=== PATIENT | male | born 1955 | race Caucasian/White ===

== ENCOUNTER 2018-09-24 08:02 | Inpatient (IN) | payer BC ==
[2018-09-24 08:02] VITALS: BMI 31.4
[2018-09-24 08:52] LABS: BASO # 0.1 K/uL (0.0-0.2); BASO % 0.8 % (0.0-2.0); EOS # 1.5 K/uL (0.0-0.7); EOS % 18.6 % (0.0-4.0); HEMOGLOBIN 7.6 g/dL (12.0-18.0); MEAN CELL VOLUME 80.3 fL (80.0-94.0); MEAN CORPUSCULAR HEMOGLOBIN 25.9 pg (27.0-31.0); MEAN CORPUSCULAR HGB CONC 32.3 g/dL (33.0-37.0); MEAN PLATELET VOLUME 8.5 fL (7.2-11.7); MONO # 0.7 K/uL (0.0-0.8); MONO % 8.9 % (0.0-10.0); NEUT # 4.8 K/uL (1.8-7.0); NEUT % 59.7 % (50.0-75.0); RBC 2.94 Mil/uL (4.40-5.90); RED CELL DISTRIBUTION WIDTH 15.2 % (11.5-14.5)
[2018-09-24 09:00] LABS: INR 1.1; PROTHROMBIN TIME 12.2 SECONDS (9.7-12.2)
--- NOTE | 2018-09-24 09:02 | C.PDOC ---
History Of Present Illness 62 year old male with a history of renal insufficiency, not on dialysis, presents to the emergency department with increased shortness of breath. Patient was sent in by Dr. Avelino Carter for admission for dialysis. Patient denies chest p ain. Time Seen by Provider: 09/24/18 08:07 Chief Complaint (Nursing): Medical Clearance History Per: Patient History/Exam Limitations: no limitations Onset/Duration Of Symptoms: Days Current Symptoms Are (Timing): Still Present Past Medical History Reviewed: Historical Data, Nursing Documentation, Vital Signs Vital Signs: Last Vital Signs Temp 98.3 F 09/24/18 08:04 Pulse 65 09/24/18 08:04 Resp 18 09/24/18 08:04 BP 160/68 H 09/24/18 08:04 Pulse Ox 100 09/24/18 08:04 - Medical History PMH: CHF, Diabetes, HTN, Hypercholesterolemia, Peripheral Edema Denies: Chronic Kidney Disease Surgical History: CABG (double), Pacemaker - [facility] Procedures INSERT PACE. DUAL DINESH IN CHEST SUBCU/FASCIA, OPEN (07/12/16) INSERTION OF PACEMAKER LEAD INTO R VENTRICLE, PERC APPROACH (07/12/16) INSERTION OF PACEMAKER LEAD INTO RIGHT ATRIUM, PERC APPROACH (07/12/16) Family History: States: No Known Family Hx - Social History Hx Alcohol Use: No Hx Substance Use: No - Immunization History Hx Tetanus Toxoid Vaccination: No Hx Influenza Vaccination: No Hx Pneumococcal Vaccination: No Review Of Systems Except As Marked, All Systems Reviewed And Found Negative. Respiratory: Positive for: Shortness of Breath Physical Exam - Physical Exam Appears: Non-toxic, No Acute Distress Skin: Normal Color, Warm, Dry Head: Atraumatic, Normacephalic Eye(s): bilateral: Normal Inspection, PERRL, EOMI Nose: Normal Oral Mucosa: Moist Neck: Normal, Supple Chest: Symmetrical Cardiovascular: Rhythm Regular, No Murmur Respiratory: Rales (bilaterally) Gastrointestinal/Abdominal: Soft, No Tenderness Extremity: Pedal Edema (+3 pitting edema bilaterally) Extremity: Bilateral: Atraumatic, Normal ROM Neurological/Psych: Oriented x3, Normal Speech, Normal Cognition ED Course And Treatment - Laboratory Results Result Diagrams: 09/24/18 08:39 09/24/18 08:39 ECG Rhythm: V Paced Rate From EC O2 Sat by Pulse Oximetry: 100 (RA) Pulse Ox Interpretation: Normal Medical Decision Making Medical Decision Making: Plan: 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 Jaramillo for consult. Disposition Discussed With : Mary Carter Doctor Will See Patient In The: Hospital Counseled Patient/Family Regarding: Studies Performed, Diagnosis - Disposition Disposition Time: 09:02 Condition: FAIR Forms: [facility] ([employer]) - Clinical Impression Clinical Impression: CHF (congestive heart failure) - Scribe Statement The provider has reviewed the documentation as recorded by the Scribe (Watson Neilvi) Provider Attestation: All medical record entries made by the Scribe were at my direction and personally dictated by me. I have reviewed the chart and agree that the record accurately reflects my personal performance of the history, physical exam, medical decision making, and the department course for this patient. I have also personally directed, reviewed, and agree with the discharge instructions and disposition.
[2018-09-24 09:04] LABS: ALB/GLOB RATIO 1.4 (1.0-2.1); ALBUMIN 3.6 g/dL (3.5-5.0); CALCIUM 6.7 mg/dl (8.6-10.4)
[2018-09-24 09:07] LABS: TROPONIN I 0.018 ng/mL (0.00-0.120)
--- NOTE | 2018-09-24 10:57 | RAD ---
HISTORY: SOB COMPARISON: Chest x-ray performed 07/13/16 TECHNIQUE: Chest, one view. FINDINGS: Examination limited by habitus. LUNGS: Bilateral hilar prominence. Mild pulmonary venous congestion. Nodular calcifications within the left and right upper lobes similar prior study likely related to calcified granulomas. Multiple left hilar calcifications likely nodes. Patchy left lower lobe excessive/infiltrate. Please note that chest x-ray has limited sensitivity for the detection of pulmonary masses. PLEURA: No significant pleural effusion identified. No definite pneumothorax . CARDIOVASCULAR: Left-sided pacemaker. Median sternotomy wires with evidence of CABG. Marked cardiomegaly. OSSEOUS STRUCTURES: Degenerative changes. VISUALIZED UPPER ABDOMEN: Unremarkable. OTHER FINDINGS: None. IMPRESSION: Nodular calcifications within the left and right upper lobes similar prior study likely related to calcified granulomas. Multiple left hilar calcifications likely nodes. Left-sided pacemaker. Cardiomegaly. Bilateral hilar prominence. Mild pulmonary venous congestion. Patchy left lower lobe atelectasis/infiltrate.
--- NOTE | 2018-09-24 11:53 | CP.PCM.CON ---
History of Present Illness - History of Present Illness History of Present Illness: Surgery Consult Note. Dr. Jaramillo Service 62yo M with PMHx of Renal Insufficiency, not currently on HD, was sent in to the hospital by the PMD for high creatinine and shortness of breath. Patient states that he had a similar episode 1 month ago where he obtained medical management with Lasix and was asked to follow up closely for any improvement. Patient returned today with worsening SOB. Denies any other complaints. No F/C. No chest pain. no Abdominal pain. No N/V/D. PMD: Dr. Avelino Carter PMHx: Renal Insufficiency, CHF, DM, HTN, HLD PSHx: Pacemaker, CABG Family Hx: Non-contributory Social Hx: Denies Tobacco use, Denies illicit drugs, denies etoh NKDA Review of Systems - Review of Systems All systems: reviewed and no additional remarkable complaints except - Constitutional Constitutional: absent: Chills, Fever - EENT Eyes: absent: Blurred Vision Nose/Mouth/Throat: absent: Epistaxis, Nasal Discharge - Cardiovascular Cardiovascular: Dyspnea, Dyspnea on Exertion, Pedal Edema. absent: Chest Pain at Rest - Respiratory Respiratory: Dyspnea. absent: Cough - Gastrointestinal Gastrointestinal: absent: Abdominal Pain, Belching, Diarrhea, Nausea, Vomiting - Integumentary Integumentary: absent: Striae - Neurological Neurological: absent: Paresthesias Past Patient History - Infectious Disease Hx of Infectious Diseases: None - Past Medical History & Family History Past Medical History?: Yes Past Family History: Reviewed and not pertinent - Past Social History Smoking Status: Never Smoked Alcohol: None Drugs: Denies - CARDIAC Hx Congestive Heart Failure: Yes Hx Hypercholesterolemia: Yes Hx Hypertension: Yes Hx Pacemaker: Yes Hx Peripheral Edema: Yes - PULMONARY Hx Respiratory Disorders: No - NEUROLOGICAL Hx Neurological Disorder: No - HEENT Hx HEENT Problems: No Other/Comment: WEARS EYEGLASSES - RENAL Hx Chronic Kidney Disease: Yes - ENDOCRINE/METABOLIC Hx Diabetes Mellitus Type 2: Yes Other/Comment: hyper or hypo unknown - HEMATOLOGICAL/ONCOLOGICAL Hx Blood Disorders: No - INTEGUMENTARY Hx Dermatological Problems: No - MUSCULOSKELETAL/RHEUMATOLOGICAL Hx Musculoskeletal Disorders: No Hx Falls: No - GASTROINTESTINAL Hx Gastrointestinal Disorders: No - GENITOURINARY/GYNECOLOGICAL Hx Genitourinary Disorders: No - PSYCHIATRIC Hx Substance Use: No - SURGICAL HISTORY Hx Coronary Artery Bypass Graft: Yes (double) - ANESTHESIA Hx Anesthesia: Yes Hx Anesthesia Reactions: No Meds Allergies/Adverse Reactions: Allergies Allergy/AdvReac Type Severity Reaction Status Date / Time No Known Allergies Allergy Verified 07/12/16 11:44 Physical Exam - Constitutional Appears: Well, Non-toxic, No Acute Distress - Head Exam Head Exam: ATRAUMATIC, NORMAL INSPECTION, NORMOCEPHALIC - Eye Exam Eye Exam: EOMI. absent: Scleral icterus - ENT Exam ENT Exam: Mucous Membranes Moist - Respiratory Exam Respiratory Exam: NORMAL BREATHING PATTERN. absent: Accessory Muscle Use, Respiratory Distress - Cardiovascular Exam Cardiovascular Exam: RRR. absent: JVD - GI/Abdominal Exam GI & Abdominal Exam: Soft. absent: Distended, Firm, Guarding, Hernia, Rebound, Rigid, Tenderness - Extremities Exam Extremities exam: Positive for: pedal edema. Negative for: calf tenderness - Neurological Exam Neurological exam: Alert, Oriented x3 - Psychiatric Exam Psychiatric exam: Normal Affect, Normal Mood - Skin Skin Exam: Dry, Intact, Normal Color, Warm Results - Vital Signs Recent Vital Signs: Last Vital Signs Temp 97.7 F 09/24/18 09:01 Pulse 76 09/24/18 09:13 Resp 18 09/24/18 09:13 BP 145/76 09/24/18 09:13 Pulse Ox 95 09/24/18 10:19 - Labs Result Diagrams: 09/24/18 08:39 09/24/18 08:39 Labs: Laboratory Results - last 24 hr 09/24/18 09/24/18 09/24/18 08:39 08:39 08:39 WBC 8.0 RBC 2.94 L Hgb 7.6 L D Hct 23.6 L MCV 80.3 D MCH 25.9 L MCHC 32.3 L RDW 15.2 H Plt Count 219 MPV 8.5 Neut % (Auto) 59.7 Lymph % (Auto) 12.0 L Kent % (Auto) 8.9 Eos % (Auto) 18.6 H Baso % (Auto) 0.8 Neut # (Auto) 4.8 Lymph # (Auto) 1.0 Kent # (Auto) 0.7 Eos # (Auto) 1.5 H Baso # (Auto) 0.1 PT 12.2 INR 1.1 APTT 32 Sodium 139 Potassium 5.2 Chloride 102 Carbon Dioxide 23 Anion Gap 19 BUN 91 H Creatinine 8.1 H* Est GFR ( Amer) 8 Est GFR (Non-Af Amer) 7 Random Glucose 89 Calcium 6.7 L Magnesium 2.0 Total Bilirubin 0.5 AST 41 ALT 52 Alkaline Phosphatase 119 Troponin I 0.0180 NT-Pro-B Natriuret Pep 11980 H Total Protein 6.2 L Albumin 3.6 Globulin 2.6 Albumin/Globulin Ratio 1.4 Assessment & Plan - Assessment and Plan (Free Text) Assessment: 62yo M with renal insufficiency Plan: - Plan for OR on 09/25 - NPO at ma - Medical optimization - Right arm precautions - f/u US Vein mapping as ordered Further recs as per Dr. Ella Cabrales PGY2 Surgery
--- NOTE | 2018-09-24 21:08 | CP.PCM.HP ---
Past Patient History - Infectious Disease Hx of Infectious Diseases: None - Past Medical History & Family History Past Medical History?: Yes Past Family History: Reviewed and not pertinent - Past Social History Smoking Status: Never Smoked Alcohol: None Drugs: Denies - CARDIAC Hx Congestive Heart Failure: Yes Hx Hypercholesterolemia: Yes Hx Hypertension: Yes Hx Pacemaker: Yes Hx Peripheral Edema: Yes - PULMONARY Hx Respiratory Disorders: No - NEUROLOGICAL Hx Neurological Disorder: No - HEENT Hx HEENT Problems: No Other/Comment: WEARS EYEGLASSES - RENAL Hx Chronic Kidney Disease: Yes - ENDOCRINE/METABOLIC Hx Diabetes Mellitus Type 2: Yes Other/Comment: hyper or hypo unknown - HEMATOLOGICAL/ONCOLOGICAL Hx Blood Disorders: No - INTEGUMENTARY Hx Dermatological Problems: No - MUSCULOSKELETAL/RHEUMATOLOGICAL Hx Musculoskeletal Disorders: No Hx Falls: No - GASTROINTESTINAL Hx Gastrointestinal Disorders: No - GENITOURINARY/GYNECOLOGICAL Hx Genitourinary Disorders: No - PSYCHIATRIC Hx Substance Use: No - SURGICAL HISTORY Hx Coronary Artery Bypass Graft: Yes (double) - ANESTHESIA Hx Anesthesia: Yes Hx Anesthesia Reactions: No Meds Allergies/Adverse Reactions: Allergies Allergy/AdvReac Type Severity Reaction Status Date / Time No Known Allergies Allergy Verified 07/12/16 11:44 Physical Exam - Constitutional Appears: Well - Head Exam Head Exam: ATRAUMATIC, NORMAL INSPECTION, NORMOCEPHALIC - Eye Exam Eye Exam: EOMI, Normal appearance, PERRL Pupil Exam: NORMAL ACCOMODATION, PERRL - ENT Exam ENT Exam: Mucous Membranes Moist, Normal Exam - Neck Exam Neck exam: Positive for: Normal Inspection - Respiratory Exam Respiratory Exam: Decreased Breath Sounds - Cardiovascular Exam Cardiovascular Exam: REGULAR RHYTHM, +S1, +S2 - GI/Abdominal Exam GI & Abdominal Exam: Diminished Bowel Sounds, Soft - Rectal Exam Rectal Exam: Deferred Results - Vital Signs Recent Vital Signs: Last Vital Signs Temp 97.7 F 09/24/18 15:54 Pulse 65 09/24/18 16:00 Resp 20 09/24/18 15:54 BP 166/87 H 09/24/18 17:55 Pulse Ox 97 09/24/18 15:54 - Labs Result Diagrams: 09/24/18 08:39 09/24/18 08:39 Labs: Laboratory Results - last 24 hr 09/24/18 09/24/18 09/24/18 08:39 08:39 08:39 WBC 8.0 RBC 2.94 L Hgb 7.6 L D Hct 23.6 L MCV 80.3 D MCH 25.9 L MCHC 32.3 L RDW 15.2 H Plt Count 219 MPV 8.5 Neut % (Auto) 59.7 Lymph % (Auto) 12.0 L Mccreary % (Auto) 8.9 Eos % (Auto) 18.6 H Baso % (Auto) 0.8 Neut # (Auto) 4.8 Lymph # (Auto) 1.0 Mccreary # (Auto) 0.7 Eos # (Auto) 1.5 H Baso # (Auto) 0.1 PT 12.2 INR 1.1 APTT 32 Sodium 139 Potassium 5.2 Chloride 102 Carbon Dioxide 23 Anion Gap 19 BUN 91 H Creatinine 8.1 H* Est GFR ( Amer) 8 Est GFR (Non-Af Amer) 7 POC Glucose (mg/dL) Random Glucose 89 Calcium 6.7 L Magnesium 2.0 Total Bilirubin 0.5 AST 41 ALT 52 Alkaline Phosphatase 119 Troponin I 0.0180 NT-Pro-B Natriuret Pep 73065 H Total Protein 6.2 L Albumin 3.6 Globulin 2.6 Albumin/Globulin Ratio 1.4 Blood Type Antibody Screen 09/24/18 09/24/18 09/24/18 11:39 14:00 16:55 WBC RBC Hgb Hct MCV MCH MCHC RDW Plt Count MPV Neut % (Auto) Lymph % (Auto) Mccreary % (Auto) Eos % (Auto) Baso % (Auto) Neut # (Auto) Lymph # (Auto) Mccreary # (Auto) Eos # (Auto) Baso # (Auto) PT INR APTT Sodium Potassium Chloride Carbon Dioxide Anion Gap BUN Creatinine Est GFR ( Amer) Est GFR (Non-Af Amer) POC Glucose (mg/dL) 73 160 H Random Glucose Calcium Magnesium Total Bilirubin AST ALT Alkaline Phosphatase Troponin I NT-Pro-B Natriuret Pep Total Protein Albumin Globulin Albumin/Globulin Ratio Blood Type B POSITIVE Antibody Screen Negative
[2018-09-25] MEDS: Levothyroxine 75 MCG TAB PO SCH (05:29)
[2018-09-25] MEDS ORDERED: Glucagon Recombinant 1 mg Inj IM PRN (06:22)
[2018-09-25] MEDS ORDERED: Dextrose 50% SYRINGE Inj (50 ml) IV STA (06:22)
[2018-09-25] MEDS ORDERED: Dextrose 50% SYRINGE Inj (50 ml) IV PRN (06:22)
[2018-09-25 08:12] LABS: CALCIUM 6.8 mg/dl (8.6-10.4)
[2018-09-25] MEDS: Metoprolol Succinate 100 mg XL Tab PO SCH (09:38)
[2018-09-25] MEDS: Vitamin B Complex/Vitamin C Tab PO SCH (09:39)
[2018-09-25] MEDS ORDERED: ceFAZolin 1 gm in NS 2 GM/200 ML BAG IVPB ONE (13:27)
[2018-09-25] MEDS ORDERED: Lidocaine 1% 20 MG/2 ML PF AMP ONE (13:28)
[2018-09-25] MEDS ORDERED: HEPARIN-NS 5,000 UNITS/500 ML 5,000 UNIT/500 ML BAG IV ONE (13:28)
[2018-09-25] MEDS ORDERED: Propofol 10 mg/ml Inj (20 ML) ONE (13:57)
[2018-09-25] MEDS ORDERED: Midazolam 2 MG/2 ML VIAL ONE ×2 (13:57→13:59)
[2018-09-25] MEDS ORDERED: Oxymetazoline 0.05% Nasal Spray (30 ml) NS ONE (14:22)
--- NOTE | 2018-09-25 14:37 | VASCLAB ---
Date of service: 09/24/2018 PROCEDURE: Upper Extremity Venous Duplex Exam HISTORY: AVF PRIORS: None. TECHNIQUE: Bilateral upper extremity, internal jugular, subclavian, axillary, brachial, ulnar, radial, basilic and upper cephalic veins were evaluated. Flow was assessed with color Doppler, compressibility, assessment of phasic flow and augmentation response. Report prepared by Williams Richardson, BS, RVT FINDINGS: RIGHT: 1. Internal Jugular Vein: Compressibility - Fully compressible: Thrombus - None : Flow - Phasic 2. Subclavian Vein:Compressibility - Fully compressible: Thrombus - None : Flow - Phasic 3. Axillary Vein: Compressibility - Fully compressible: Thrombus - None 4. Brachial Vein: Compressibility - Fully compressible: Thrombus - None 5. Ulnar Vein:Compressibility - Fully compressible: Thrombus - None 6. Radial Vein:Compressibility - Fully compressible: Thrombus - None 7. Cephalic Vein: Compressibility - Fully compressible: thrombus - None 7.1. Upper Arm: Proximal Diameter: 0.30cm. Mid Diameter: 0.17cm. Distal Diameter: 0.19cm. Antecubital Fossa Diameter: 0.16Cm. 7.2. Forearm: Proximal Diameter: 0.20cm. Mid Diameter:0.17cm. Distal Diameter: 0.15cm 8. Basilic Vein:Compressibility - Fully compressible: thrombus - None 8.1. Upper Arm:Proximal Diameter: 0.55cm. Mid Diameter: 0.38cm. Distal Diameter: 0.36cm. Antecubital Fossa Diameter: 0.33Cm. 8.2. Forearm: Proximal Diameter: 0.16cm. Mid Diameter:0.16cm. Distal Diameter: 0.18cm. LEFT: 1. Internal Jugular Vein: Compressibility - Fully compressible: Thrombus - None : Flow - Phasic 2. Subclavian Vein:Compressibility - Fully compressible: Thrombus - None : Flow - Phasic 3. Axillary Vein: Compressibility - Fully compressible: Thrombus - None 4. Brachial Vein: Compressibility - Fully compressible: Thrombus - None 5. Ulnar Vein:Compressibility - Fully compressible: Thrombus - None 6. Radial Vein:Compressibility - Fully compressible: Thrombus - None 7. Cephalic Vein: Compressibility - Fully compressible: thrombus - None 7.1. Upper Arm: Proximal Diameter: 0.26cm. Mid Diameter: 0.20cm. Distal Diameter: 0.17cm. Antecubital Fossa Diameter: 0.24Cm. 7.2. Forearm: Proximal Diameter: 0.14cm. Mid Diameter:0.14cm. Distal Diameter: 0.15cm 8. Basilic Vein:Compressibility - Fully compressible: thrombus - None 8.1. Upper Arm:Proximal Diameter: 0.48cm. Mid Diameter: 0.41cm. Distal Diameter: 0.37cm. Antecubital Fossa Diameter: 0.38Cm. 8.2. Forearm: Proximal Diameter: 0.17cm. Mid Diameter:0.20cm. Distal Diameter: 0.14cm. OTHER FINDINGS: Right: None. Left: None. IMPRESSION: Right: Diameter measurements of the right cephalic vein is measured between 0.15 cm and 0.30 cm and basilic vein is measured between 0.16 cm and 0.55 cm. Left: Diameter measurements of the left cephalic vein is measured between 0.14 cm and 0.26 cm and basilic vein is measured between 0.14cm and 0.48cm.
--- NOTE | 2018-09-25 14:42 | PCM.SURG1 ---
Surgeon's Initial Post Op Note - Surgeon's Notes Surgeon: nigel Edger Hand: 0 Type of Anesthesia: General LMA Anesthesia Administered By: alexandro Pre-Operative Diagnosis: renal failure Operative Findings: cath to [facility] Post-Operative Diagnosis: same Operation Performed: permacath right jugular Specimen/Specimens Removed: 0 Estimated Blood Loss: EBL {In ML}: 25 Blood Products Given: N/A Drains Used: No Drains Post-Op Condition: Good Date of Surgery/Procedure: 09/25/18 Time of Surgery/Procedure: 14:42
--- NOTE | 2018-09-25 14:43 | CP.PCM.PN ---
Subjective - Date & Time of Evaluation Date of Evaluation: 09/25/18 Time of Evaluation: 14:42 - Subjective Subjective: will schedule for avf once cleared Objective - Vital Signs/Intake and Output Vital Signs (last 24 hours): Temp Pulse Resp BP Pulse Ox 98.8 F 70 20 149/76 94 L 09/25/18 07:00 09/25/18 08:00 09/25/18 07:00 09/25/18 09:38 09/25/18 07:00 Intake and Output: 09/25/18 09/25/18 06:59 18:59 Intake Total 200 Output Total 300 Balance -300 200 - Medications Medications: Current Medications Calcium Acetate (Phoslo) 667 mg PO TIDCC [facility] Last Admin: 09/25/18 12:30 Dose: Not Given Dextrose (Dextrose 50% Inj) 0 ml IV STAT PRN; Protocol PRN Reason: Hypoglycemia Protocol Dextrose (Glutose 15) 0 gm PO ONCE PRN; Protocol PRN Reason: Hypoglycemia Protocol Furosemide (Lasix) 80 mg PO BID [facility] Last Admin: 09/25/18 09:38 Dose: 80 mg Glipizide (Glucotrol) 5 mg PO BID [facility] Last Admin: 09/25/18 09:45 Dose: Not Given Glucagon (Glucagen Diagnostic Kit) 0 mg IM STAT PRN; Protocol PRN Reason: Hypoglycemia Protocol Hydralazine HCl (Apresoline) 25 mg PO TID [facility] Last Admin: 09/25/18 14:07 Dose: Not Given Dextrose (Dextrose 5% In Water 1000 Ml) 1,000 mls @ 0 mls/hr IV .Q0M PRN; Protocol PRN Reason: Hypoglycemia Protocol Levothyroxine Sodium (Synthroid) 75 mcg PO DAILY@0630 [facility] Last Admin: 09/25/18 05:29 Dose: 75 mcg Metoprolol Succinate (Toprol Xl) 100 mg PO DAILY [facility] Last Admin: 09/25/18 09:38 Dose: 100 mg Rosuvastatin Calcium (Crestor) 10 mg PO HS [facility] Last Admin: 09/24/18 21:39 Dose: 10 mg Vitamin B Complex/Vitamin C (Berocca) 1 tab PO DAILY [facility] Last Admin: 09/25/18 09:39 Dose: 1 tab - Labs Labs: 09/24/18 08:39 09/25/18 06:19 PT 12.2 SECONDS (9.7-12.2) 09/24/18 08:39 INR 1.1 09/24/18 08:39 APTT 32 SECONDS (21-34) 09/24/18 08:39
[2018-09-25] MEDS ORDERED: Oxycodone/Acetaminophen 5/325 mg Tab PO PRN (14:45)
--- NOTE | 2018-09-25 15:18 | RAD ---
Date of service: 09/25/2018 HISTORY: permacath COMPARISON: 09/24/2018 FINDINGS: LUNGS: No active pulmonary disease. PLEURA: No significant pleural effusion identified, no pneumothorax apparent. CARDIOVASCULAR: Mild cardiomegaly. CABG. Permanent pacemaker. No pulmonary vascular congestion. There is no evident atherosclerotic calcification of the thoracic aorta OSSEOUS STRUCTURES: No significant abnormalities. VISUALIZED UPPER ABDOMEN: Normal. OTHER FINDINGS: None. IMPRESSION: No acute infiltrate.
[2018-09-25] MEDS ORDERED: Oxymetazoline 0.05% Nasal Spray (30 ml) NS PRN (15:19)
--- NOTE | 2018-09-25 15:24 | CP.PCM.PN ---
Subjective - Date & Time of Evaluation Date of Evaluation: 09/25/18 Time of Evaluation: 12:00 - Subjective Subjective: clinically same Objective - Vital Signs/Intake and Output Vital Signs (last 24 hours): Temp Pulse Resp BP Pulse Ox 98.8 F 70 20 149/76 94 L 09/25/18 07:00 09/25/18 08:00 09/25/18 07:00 09/25/18 09:38 09/25/18 07:00 Intake and Output: 09/25/18 09/25/18 06:59 18:59 Intake Total 250 Output Total 300 Balance -300 250 - Medications Medications: Current Medications Calcium Acetate (Phoslo) 667 mg PO TIDCC [facility] Last Admin: 09/25/18 12:30 Dose: Not Given Dextrose (Dextrose 50% Inj) 0 ml IV STAT PRN; Protocol PRN Reason: Hypoglycemia Protocol Dextrose (Glutose 15) 0 gm PO ONCE PRN; Protocol PRN Reason: Hypoglycemia Protocol Furosemide (Lasix) 80 mg PO BID [facility] Last Admin: 09/25/18 09:38 Dose: 80 mg Glipizide (Glucotrol) 5 mg PO BID [facility] Last Admin: 09/25/18 09:45 Dose: Not Given Glucagon (Glucagen Diagnostic Kit) 0 mg IM STAT PRN; Protocol PRN Reason: Hypoglycemia Protocol Hydralazine HCl (Apresoline) 25 mg PO TID [facility] Last Admin: 09/25/18 14:07 Dose: Not Given Dextrose (Dextrose 5% In Water 1000 Ml) 1,000 mls @ 0 mls/hr IV .Q0M PRN; Pr otocol PRN Reason: Hypoglycemia Protocol Levothyroxine Sodium (Synthroid) 75 mcg PO DAILY@0630 [facility] Last Admin: 09/25/18 05:29 Dose: 75 mcg Metoprolol Succinate (Toprol Xl) 100 mg PO DAILY [facility] Last Admin: 09/25/18 09:38 Dose: 100 mg Morphine Sulfate (Morphine) 1 mg IVP Q10M PRN PRN Reason: Pain, moderate (4-7) Stop: 09/25/18 17:19 Ondansetron HCl (Zofran Inj) 4 mg IVP ONCE PRN PRN Reason: Nausea/Vomiting Stop: 09/25/18 17:19 Oxycodone/Acetaminophen (Percocet 5/325 Mg Tab) 1 tab PO Q4H PRN PRN Reason: Pain, moderate (4-7) Stop: 09/28/18 14:46 Oxymetazoline HCl (Afrin 0.05%) 0.05 ml NS Q12H PRN PRN Reason: Nasal congestion Rosuvastatin Calcium (Crestor) 10 mg PO HS [facility] Last Admin: 09/24/18 21:39 Dose: 10 mg Vitamin B Complex/Vitamin C (Berocca) 1 tab PO DAILY [facility] Last Admin: 09/25/18 09:39 Dose: 1 tab - Labs Labs: 09/24/18 08:39 09/25/18 06:19 PT 12.2 SECONDS (9.7-12.2) 09/24/18 08:39 INR 1.1 09/24/18 08:39 APTT 32 SECONDS (21-34) 09/24/18 08:39 - Constitutional Appears: Well - Head Exam Head Exam: ATRAUMATIC, NORMAL INSPECTION, NORMOCEPHALIC - Eye Exam Eye Exam: EOMI, Normal appearance, PERRL Pupil Exam: NORMAL ACCOMODATION, PERRL - ENT Exam ENT Exam: Mucous Membranes Moist, Normal Exam - Neck Exam Neck Exam: Full ROM, Normal Inspection. absent: Lymphadenopathy - Respiratory Exam Respiratory Exam: Decreased Breath Sounds - Cardiovascular Exam Cardiovascular Exam: REGULAR RHYTHM, +S1, +S2 - GI/Abdominal Exam GI & Abdominal Exam: Soft, Diminished Bowel Sounds - Rectal Exam Rectal Exam: Deferred
[2018-09-25] MEDS ORDERED: Epoetin Alfa 10,000 unit/ml Dialysis SC ONE (16:30)
--- NOTE | 2018-09-25 16:45 | RAD ---
Date of service: 09/25/2018 PROCEDURE: Intraoperative Fluoroscopy. HISTORY: RENAL FAILURE FINDINGS: Fluoroscopic assistance was provided for PermCath placement. Please refer to the operative report from DEBBIE Cronin. Total fluoroscopic time (continuous mode) utilized during the procedure 60.7 seconds. Total exam DLP: 19.74 (mGy).
[2018-09-25] MEDS ORDERED: Ferric Sodium Gluconat Complex 125 MG in Sodium Chloride 0.9% 100 ML IVPB SCH (17:00)
[2018-09-25 17:31] LABS: HEPATITIS B SURFACE AG Negative (NEGATIVE)
[2018-09-25 17:36] LABS: HEPATITIS B CORE AB NEGATIVE (NEGATIVE)
[2018-09-25 17:48] LABS: HEPATITIS C ANTIBODY NEGATIVE (NEGATIVE)
[2018-09-25] MEDS ORDERED: Epoetin Alfa 10,000 unit/ml Dialysis IV ONE (18:15)
--- NOTE | 2018-09-25 20:38 | OP ---
DATE OF PROCEDURE: 09/25/2018 PREOPERATIVE DIAGNOSIS: Renal failure. POSTOPERATIVE DIAGNOSIS: Renal failure. PROCEDURE CARRIED OUT: PermCath right jugular vein with C-arm fluoroscopy, ultrasound-guided puncture, and micropuncture technique. SURGEON: Akin Jaramillo Jr., MD QUALITY PROJECT MANAGER: None. ANESTHESIOLOGIST: Andie Cruz CRNA INDICATIONS: The patient is a 62-year-old man, recently started on dialysis, history of coronary interventions, history of pacemaker on the left side. OPERATIVE FINDINGS: Initially, there was some difficulty getting in despite the fact of a 13-mm vessel on ultrasound; however, eventually we were able to puncture this successfully, then advanced the guidewire centrally, putting the appropriate sheath dilators and putting the catheter. Catheter originated on the right chest wall, went through the jugular vein and terminated into the superior vena cava. This was flushed with heparinized saline and had excellent return. This was secured to the skin with sutures with a cuffed tunneled catheter. Blood loss was less than 25 mL. Ultrasound imaging of the neck showed the vein was approximately 13 mm in diameter with normal compressibility and no intraluminal thrombosis. Akin Jaramillo Jr., MD
--- NOTE | 2018-09-25 22:33 | CARD ---
APPROVED REPORT Date of service: 09/24/2018 EKG Measurement Heart [id number] ID [id number] <Conclusion> Atrial-sensed ventricular-paced rhythm Abnormal ECG
[2018-09-26] MEDS: Levothyroxine 75 MCG TAB PO SCH (05:56)
[2018-09-26 07:44] LABS: BASO # 0.1 K/uL (0.0-0.2); EOS # 1.5 K/uL (0.0-0.7); EOS % 17.2 % (0.0-4.0); HEMOGLOBIN 7.6 g/dL (12.0-18.0); LYMPH # 0.9 K/uL (1.0-4.3); LYMPH % 10.2 % (20.0-40.0); MEAN CORPUSCULAR HEMOGLOBIN 26.1 pg (27.0-31.0); MEAN CORPUSCULAR HGB CONC 32.6 g/dL (33.0-37.0); MEAN PLATELET VOLUME 8.8 fL (7.2-11.7); MONO # 0.8 K/uL (0.0-0.8); MONO % 9.2 % (0.0-10.0); NEUT # 5.4 K/uL (1.8-7.0); NEUT % 62.4 % (50.0-75.0); RBC 2.92 Mil/uL (4.40-5.90); RED CELL DISTRIBUTION WIDTH 15.3 % (11.5-14.5); WHITE BLOOD COUNT 8.7 K/uL (4.8-10.8)
--- NOTE | 2018-09-26 07:58 | CP.PCM.PN ---
Subjective - Date & Time of Evaluation Date of Evaluation: 09/26/18 Time of Evaluation: 11:30 - Subjective Subjective: Medicine Note for Dr. Avelino Carter's Service Patient was seen and examined at bedside. Patient reports his breathing has improved. Right nostril epistaxis has stopped with rhino rocket. ROS unremarkable. Objective - Vital Signs/Intake and Output Vital Signs (last 24 hours): Temp Pulse Resp BP Pulse Ox 97.7 F 72 20 140/69 96 09/26/18 07:00 09/26/18 07:00 09/26/18 07:00 09/26/18 07:00 09/26/18 07:00 Intake and Output: 09/26/18 09/26/18 06:59 18:59 Output Total 400 Balance -400 - Medications Medications: Current Medications Calcium Acetate (Phoslo) 667 mg PO TIDCC [facility] Last Admin: 09/25/18 18:18 Dose: Not Given Dextrose (Dextrose 50% Inj) 0 ml IV STAT PRN; Protocol PRN Reason: Hypoglycemia Protocol Dextrose (Glutose 15) 0 gm PO ONCE PRN; Protocol PRN Reason: Hypoglycemia Protocol Furosemide (Lasix) 80 mg PO BID [facility] Last Admin: 09/25/18 18:18 Dose: Not Given Glipizide (Glucotrol) 5 mg PO BID [facility] Last Admin: 09/25/18 18:18 Dose: Not Given Glucagon (Glucagen Diagnostic Kit) 0 mg IM STAT PRN; Protocol PRN Reason: Hypoglycemia Protocol Hydralazine HCl (Apresoline) 25 mg PO TID [facility] Last Admin: 09/25/18 18:17 Dose: Not Given Dextrose (Dextrose 5% In Water 1000 Ml) 1,000 mls @ 0 mls/hr IV .Q0M PRN; Protocol PRN Reason: Hypoglycemia Protocol Ferric Sodium Gluconate Complex 125 mg/ Sodium Chloride 110 mls @ 110 mls/hr IVPB Q24H [facility] Stop: 10/01/18 10:01 Levothyroxine Sodium (Synthroid) 75 mcg PO DAILY@0630 [facility] Last Admin: 09/26/18 05:56 Dose: 75 mcg Metoprolol Succinate (Toprol Xl) 100 mg PO DAILY [facility] Last Admin: 09/25/18 09:38 Dose: 100 mg Oxycodone/Acetaminophen (Percocet 5/325 Mg Tab) 1 tab PO Q4H PRN PRN Reason: Pain, moderate (4-7) Stop: 09/28/18 14:46 Oxymetazoline HCl (Afrin 0.05%) 0 ml NS Q12H PRN PRN Reason: Nasal congestion Rosuvastatin Calcium (Crestor) 10 mg PO HS [facility] Last Admin: 09/25/18 21:21 Dose: 10 mg Vitamin B Complex/Vitamin C (Berocca) 1 tab PO DAILY [facility] Last Admin: 09/25/18 09:39 Dose: 1 tab - Labs Labs: 09/26/18 07:35 09/25/18 06:19 PT 12.2 SECONDS (9.7-12.2) 09/24/18 08:39 INR 1.1 09/24/18 08:39 APTT 32 SECONDS (21-34) 09/24/18 08:39 - Constitutional Appears: No Acute Distress - Head Exam Head Exam: NORMAL INSPECTION, NORMOCEPHALIC - Eye Exam Eye Exam: EOMI, Normal appearance, PERRL Pupil Exam: NORMAL ACCOMODATION - ENT Exam ENT Exam: Mucous Membranes Dry Additional comments: rhino rocket in right nostril - Respiratory Exam Respiratory Exam: Clear to Ausculation Bilateral, NORMAL BREATHING PATTERN. absent: Decreased Breath Sounds - Cardiovascular Exam Cardiovascular Exam: +S1, +S2 Additional comments: right jugular permacath noted - GI/Abdominal Exam GI & Abdominal Exam: Soft, Normal Bowel Sounds. absent: Distended, Tenderness, Diminished Bowel Sounds - Extremities Exam Extremities Exam: Normal Inspection. absent: Pedal Edema, Tenderness - Neurological Exam Neurological Exam: Alert, Awake, Oriented x3 - Psychiatric Exam Psychiatric exam: Normal Affect, Normal Mood - Skin Skin Exam: Dry, Intact, Normal Color, Warm Assessment and Plan - Assessment and Plan (Free Text) Plan: CKD, newly placed on dialysis Anemia of Chronic Disease - Surgery consulted, Dr. Jaramillo - permacath and AVF Management: - Continue with Phoslo, Iron infusions - Permacath placed 09/25/18 - Pending cardiac clearance, anticipate AVF 09/29? Will need to follow up with surgery - Will transfuse 1 unit of PRBC during dialysis today Epistaxis - Rhino rocket inserted - Will continue to monitor Hypertension - Continue with Hydralazine and Lopressor Diabetes Mellitus - Accuchecks - Continue with Glipizide - Hypoglycemic protocol in place Hyperlipidemia - Continue with statin Diastolic Heart Failure - ECHO (2016): LVEF 60% - ECHO: ordered, pending official read - Continue with lasix 80mg PO BID CAD s/p CABG - Cardiology consulted, Dr. 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 Avelino Carter, Sofia Uribe DO, PGY2
[2018-09-26 08:20] LABS: ALB/GLOB RATIO 1.5 (1.0-2.1); ALBUMIN 3.5 g/dL (3.5-5.0); CALCIUM 6.9 mg/dl (8.6-10.4)
[2018-09-26] MEDS: Vitamin B Complex/Vitamin C Tab PO SCH (09:03)
[2018-09-26] MEDS ORDERED: Ferric Sodium Gluconat Complex 62.5 mg/5 ml Vial ONE (09:09)
[2018-09-26] MEDS: Metoprolol Succinate 100 mg XL Tab PO SCH (09:10)
[2018-09-26] MEDS: Ferric Sodium Gluconat Complex 125 MG in Sodium Chloride 0.9% 100 ML IVPB SCH (09:10)
[2018-09-26] MEDS ORDERED: Ferric Sodium Gluconat Complex 62.5 mg/5 ml Vial IVPB SCH (10:00)
--- NOTE | 2018-09-26 10:28 | CP.PCM.CON ---
History of Present Illness - History of Present Illness History of Present Illness: 62 year old male with a history of renal insufficiency, not on dialysis, presents to the emergency department with increased shortness of breath. Patient was sent in by Dr. Avelino Carter for admission for dialysis. Patient denies chest pain. PMHX: NIDDM, htn, CRI, remote h/o pulm TB s/p treatment, h/o hypothyroid had complete heart block in 06/2016 s/p implant of medtronic dual chamber PPM (Currently atrial sensed V. paced) > CAD, ischemic cardiomyopathy with CABG 11/2016 after episode of acute CHF and ACS We are being called to provide cardiac risk assessment prior to AVF ...patient currently has a tunneled catheter R. chest for HD access and has started HD. Currently: patient c/o chronic NYHA 2 WALTER, there is no CP, no palpitation, no N/V, no fevers or chills. Review of Systems - Review of Systems All systems: reviewed and no additional remarkable complaints except Past Patient History - Infectious Disease Hx of Infectious Diseases: None - Past Medical History & Family History Past Medical History?: Yes Past Family History: Reviewed and not pertinent - Past Social History Smoking Status: Never Smoked Alcohol: None Drugs: Denies - CARDIAC Hx Congestive Heart Failure: Yes Hx Hypercholesterolemia: Yes Hx Hypertension: Yes Hx Pacemaker: Yes Hx Peripheral Edema: Yes - PULMONARY Hx Respiratory Disorders: No - NEUROLOGICAL Hx Neurological Disorder: No - HEENT Hx HEENT Problems: No Other/Comment: WEARS EYEGLASSES - RENAL Hx Chronic Kidney Disease: Yes - ENDOCRINE/METABOLIC Hx Diabetes Mellitus Type 2: Yes Other/Comment: hyper or hypo unknown - HEMATOLOGICAL/ONCOLOGICAL Hx Blood Disorders: No - INTEGUMENTARY Hx Dermatological Problems: No - MUSCULOSKELETAL/RHEUMATOLOGICAL Hx Musculoskeletal Disorders: No Hx Falls: No - GASTROINTESTINAL Hx Gastrointestinal Disorders: No - GENITOURINARY/GYNECOLOGICAL Hx Genitourinary Disorders: No - PSYCHIATRIC Hx Substance Use: No - SURGICAL HISTORY Hx Coronary Artery Bypass Graft: Yes (double) - ANESTHESIA Hx Anesthesia: Yes Hx Anesthesia Reactions: No Meds Allergies/Adverse Reactions: Allergies Allergy/AdvReac Type Severity Reaction Status Date / Time No Known Allergies Allergy Verified 07/12/16 11:44 - Medications Medications: Current Medications Calcium Acetate (Phoslo) 667 mg PO TIDCC [facility] Last Admin: 09/26/18 08:58 Dose: 667 mg Dextrose (Dextrose 50% Inj) 0 ml IV STAT PRN; Protocol PRN Reason: Hypoglycemia Protocol Dextrose (Glutose 15) 0 gm PO ONCE PRN; Protocol PRN Reason: Hypoglycemia Protocol Furosemide (Lasix) 80 mg PO BID [facility] Last Admin: 09/26/18 09:10 Dose: 80 mg Glipizide (Glucotrol) 5 mg PO BID [facility] Last Admin: 09/26/18 09:02 Dose: 5 mg Glucagon (Glucagen Diagnostic Kit) 0 mg IM STAT PRN; Protocol PRN Reason: Hypoglycemia Protocol Hydralazine HCl (Apresoline) 25 mg PO TID [facility] Last Admin: 09/26/18 09:02 Dose: 25 mg Dextrose (Dextrose 5% In Water 1000 Ml) 1,000 mls @ 0 mls/hr IV .Q0M PRN; Protocol PRN Reason: Hypoglycemia Protocol Ferric Sodium Gluconate Complex 125 mg/ Sodium Chloride 110 mls @ 110 mls/hr IVPB Q24H [facility] Stop: 10/01/18 10:01 Last Admin: 09/26/18 09:10 Dose: 110 mls/hr Levothyroxine Sodium (Synthroid) 75 mcg PO DAILY@0630 [facility] Last Admin: 09/26/18 05:56 Dose: 75 mcg Metoprolol Succinate (Toprol Xl) 100 mg PO DAILY [facility] Last Admin: 09/26/18 09:10 Dose: 100 mg Oxycodone/Acetaminophen (Percocet 5/325 Mg Tab) 1 tab PO Q4H PRN PRN Reason: Pain, moderate (4-7) Stop: 09/28/18 14:46 Oxymetazoline HCl (Afrin 0.05%) 0 ml NS Q12H PRN PRN Reason: Nasal congestion Rosuvastatin Calcium (Crestor) 10 mg PO HS [facility] Last Admin: 09/25/18 21:21 Dose: 10 mg Vitamin B Complex/Vitamin C (Berocca) 1 tab PO DAILY [facility] Last Admin: 09/26/18 09:03 Dose: 1 tab Physical Exam - Constitutional Appears: No Acute Distress - Head Exam Head Exam: ATRAUMATIC, NORMAL INSPECTION, NORMOCEPHALIC - Eye Exam Eye Exam: EOMI, Normal appearance. absent: Scleral icterus - ENT Exam ENT Exam: Mucous Membranes Moist, Normal Oropharynx - Neck Exam Neck exam: Positive for: Normal Inspection. Negative for: Tenderness, Thyromegaly - Respiratory Exam Respiratory Exam: Clear to Auscultation Bilateral, NORMAL BREATHING PATTERN. absent: Rales, Rhonchi, Wheezes - Cardiovascular Exam Cardiovascular Exam: REGULAR RHYTHM, +S1, +S2. absent: +S4, Systolic Murmur - GI/Abdominal Exam GI & Abdominal Exam: Normal Bowel Sounds, Soft. absent: Tenderness - Extremities Exam Extremities exam: Positive for: pedal edema, pedal pulses present. Negative for: calf tenderness - Neurological Exam Neurological exam: Alert, CN II-XII Intact, Oriented x3 - Psychiatric Exam Psychiatric exam: Normal Affect, Normal Mood - Skin Skin Exam: Normal Color, Warm Results - Vital Signs Recent Vital Signs: Last Vital Signs Temp 97.7 F 09/26/18 07:00 Pulse 72 09/26/18 07:00 Resp 20 09/26/18 07:00 BP 140/69 09/26/18 09:10 Pulse Ox 96 09/26/18 07:00 - Labs Result Diagrams: 09/26/18 07:35 09/26/18 07:35 Labs: Laboratory Results - last 24 hr 09/25/18 09/25/18 09/25/18 06:09 06:11 11:42 WBC RBC Hgb Hct MCV MCH MCHC RDW Plt Count MPV Neut % (Auto) Lymph % (Auto) [place] % (Auto) Eos % (Auto) Baso % (Auto) Neut # (Auto) Lymph # (Auto) [place] # (Auto) Eos # (Auto) Baso # (Auto) Sodium Potassium Chloride Carbon Dioxide Anion Gap BUN Creatinine Est GFR ( Amer) Est GFR (Non-Af Amer) POC Glucose (mg/dL) 56 L 55 L 70 Random Glucose Calcium Phosphorus Magnesium Total Bilirubin AST ALT Alkaline Phosphatase Total Protein Albumin Globulin Albumin/Globulin Ratio Hep Bs Antigen Hep Bs Antibody Hep B Core IgM Ab Hepatitis C Antibody 09/25/18 09/25/18 09/25/18 15:28 16:42 16:42 WBC RBC Hgb Hct MCV MCH MCHC RDW Plt Count MPV Neut % (Auto) Lymph % (Auto) [place] % (Auto) Eos % (Auto) Baso % (Auto) Neut # (Auto) Lymph # (Auto) [place] # (Auto) Eos # (Auto) Baso # (Auto) Sodium Potassium Chloride Carbon Dioxide Anion Gap BUN Creatinine Est GFR ( Amer) Est GFR (Non-Af Amer) POC Glucose (mg/dL) 126 H Random Glucose Calcium Phosphorus Magnesium Total Bilirubin AST ALT Alkaline Phosphatase Total Protein Albumin Globulin Albumin/Globulin Ratio Hep Bs Antigen Negative Hep Bs Antibody Negative Hep B Core IgM Ab Negative Hepatitis C Antibody Negative 09/25/18 09/26/18 09/26/18 21:01 05:55 07:35 WBC 8.7 RBC 2.92 L Hgb 7.6 L Hct 23.3 L MCV 80.0 MCH 26.1 L MCHC 32.6 L RDW 15.3 H Plt Count 188 MPV 8.8 Neut % (Auto) 62.4 Lymph % (Auto) 10.2 L [place] % (Auto) 9.2 Eos % (Auto) 17.2 H Baso % (Auto) 1.0 Neut # (Auto) 5.4 Lymph # (Auto) 0.9 L [place] # (Auto) 0.8 Eos # (Auto) 1.5 H Baso # (Auto) 0.1 Sodium Potassium Chloride Carbon Dioxide Anion Gap BUN Creatinine Est GFR ( Amer) Est GFR (Non-Af Amer) POC Glucose (mg/dL) 175 H 132 H Random Glucose Calcium Phosphorus Magnesium Total Bilirubin AST ALT Alkaline Phosphatase Total Protein Albumin Globulin Albumin/Globulin Ratio Hep Bs Antigen Hep Bs Antibody Hep B Core IgM Ab Hepatitis C Antibody 09/26/18 07:35 WBC RBC Hgb Hct MCV MCH MCHC RDW Plt Count MPV Neut % (Auto) Lymph % (Auto) [place] % (Auto) Eos % (Auto) Baso % (Auto) Neut # (Auto) Lymph # (Auto) [place] # (Auto) Eos # (Auto) Baso # (Auto) Sodium 138 Potassium 4.4 Chloride 100 Carbon Dioxide 28 Anion Gap 15 BUN 57 H Creatinine 5.8 H Est GFR ( Amer) 12 Est GFR (Non-Af Amer) 10 POC Glucose (mg/dL) Random Glucose 128 H D Calcium 6.9 L Phosphorus 5.8 H Magnesium 1.9 Total Bilirubin 0.5 AST 27 ALT 35 Alkaline Phosphatase 104 Total Protein 5.9 L Albumin 3.5 Globulin 2.4 Albumin/Globulin Ratio 1.5 Hep Bs Antigen Hep Bs Antibody Hep B Core IgM Ab Hepatitis C Antibody - EKG Data EKG Interpreted by: Myself - Imaging and Cardiology Chest x-ray Status: Image reviewed by me Assessment & Plan - Assessment and Plan (Free Text) Assessment: Preop eval for AVF for HD access Ischemic cardiomyopathy s/p CABG 11/2016 (Medtr[employer]) HX of CHB s/p dual chamber PPM 2015 ESRD now on HD HTN, DM, LIPIDS Chronic anemia HTN > mild-mod needs better control > cont toprol XL 100, cont hydralazine 25 TID > Suggest MARBELLA-I or ARB now that he is on HD: monitor K+ CAD/CABG/Ischemic cardiomyopathy > ECHO done today 09/26/18: Images directly seen by me: Moderate LV dysfunction EF ~40%, mild LVH, Grade 2 DD with inc LAP, mild dilated IVC 2.2 with moderate PASP 45-50mmHg, mild MR, TR, sclerotic AV and MAC. > Patient is volume overloaded despite lasix 80 BID > add metolazone 5 daily > cont HD consecutive sessions to improve volume status > Cont long acting toprol and statin, ? Consider MARBELLA-I or ARB and aldactone 12.5 daily now that he is on HD. > Add ASA 81 if no acute bleeding given hx of chronic CAD/CABG > Patient may proceed with AVF surgery with acceptable risk: once his volume status improves. > Chronic anemia Hgb 7.6: consider supportive Rx , evaluate for any occult blood loss.
[2018-09-26] MEDS: Epoetin Alfa 10,000 unit/ml Dialysis IV SCH (17:03)
[2018-09-26] MEDS: Paricalcitol 2 mcg/ml Inj IV SCH (17:03)
--- NOTE | 2018-09-26 21:35 | CP.PCM.PN ---
Subjective - Date & Time of Evaluation Date of Evaluation: 09/26/18 Time of Evaluation: 10:15 - Subjective Subjective: clinically same Objective - Vital Signs/Intake and Output Vital Signs (last 24 hours): Temp Pulse Resp BP Pulse Ox 98.2 F 73 20 174/70 H 98 09/26/18 18:00 09/26/18 18:00 09/26/18 18:00 09/26/18 18:23 09/26/18 18:00 Intake and Output: 09/26/18 09/27/18 18:59 06:59 Intake Total 325 Balance 325 - Medications Medications: Current Medications Calcium Acetate (Phoslo) 667 mg PO TIDCC [facility] Last Admin: 09/26/18 18:23 Dose: 667 mg Dextrose (Dextrose 50% Inj) 0 ml IV STAT PRN; Protocol PRN Reason: Hypoglycemia Protocol Dextrose (Glutose 15) 0 gm PO ONCE PRN; Protocol PRN Reason: Hypoglycemia Protocol Epoetin Paul (Procrit) 10,000 unit IV MWF [facility] Last Admin: 09/26/18 17:03 Dose: 10,000 unit Furosemide (Lasix) 80 mg PO BID [facility] Last Admin: 09/26/18 18:23 Dose: 80 mg Glipizide (Glucotrol) 5 mg PO BID [facility] Last Admin: 09/26/18 18:23 Dose: 5 mg Glucagon (Glucagen Diagnostic Kit) 0 mg IM STAT PRN; Protocol PRN Reason: Hypoglycemia Protocol Hydralazine HCl (Apresoline) 25 mg PO TID [facility] Last Admin: 09/26/18 18:23 Dose: 25 mg Dextrose (Dextrose 5% In Water 1000 Ml) 1,000 mls @ 0 mls/hr IV .Q0M PRN; Protocol PRN Reason: Hypoglycemia Protocol Ferric Sodium Gluconate Complex 125 mg/ Sodium Chloride 110 mls @ 110 mls/hr IVPB Q24H [facility] Stop: 10/01/18 10:01 Last Admin: 09/26/18 09:10 Dose: 110 mls/hr Levothyroxine Sodium (Synthroid) 75 mcg PO DAILY@0630 [facility] Last Admin: 09/26/18 05:56 Dose: 75 mcg Metoprolol Succinate (Toprol Xl) 100 mg PO DAILY [facility] Last Admin: 09/26/18 09:10 Dose: 100 mg Oxycodone/Acetaminophen (Percocet 5/325 Mg Tab) 1 tab PO Q4H PRN PRN Reason: Pain, moderate (4-7) Stop: 09/28/18 14:46 Oxymetazoline HCl (Afrin 0.05%) 0 ml NS Q12H PRN PRN Reason: Nasal congestion Paricalcitol (Zemplar) 2 mcg IV MWF [facility] Last Admin: 09/26/18 17:03 Dose: 2 mcg Rosuvastatin Calcium (Crestor) 10 mg PO HS [facility] Last Admin: 09/26/18 21:19 Dose: 10 mg Vitamin B Complex/Vitamin C (Berocca) 1 tab PO DAILY [facility] Last Admin: 09/26/18 09:03 Dose: 1 tab - Labs Labs: 09/26/18 07:35 09/26/18 07:35 PT 12.2 SECONDS (9.7-12.2) 09/24/18 08:39 INR 1.1 09/24/18 08:39 APTT 32 SECONDS (21-34) 09/24/18 08:39
[2018-09-27] MEDS: Levothyroxine 75 MCG TAB PO SCH (05:57)
--- NOTE | 2018-09-27 06:24 | CARD ---
APPROVED REPORT Date of service: 09/26/2018 EXAM: Two-dimensional and M-mode echocardiogram with Doppler and color Doppler. Other Information Quality : GoodRhythm : INDICATION Congestive Heart Failure 3 degree heart block ,chronic renal disease Surgery/Intervention Pacemaker: RISK FACTORS Hypertension Hyperlipidemia 2D DIMENSIONS IVSd1.0 (0.7-1.1cm)LVDd5.2 (3.9-5.9cm) PWd1.1 (0.7-1.1cm)LA Uazpjq10 (18-58mL) LVDs4.0 (2.5-4.0cm)FS (%) 23.2 % LVEF (%)46.2 (>50%)LVEF (Steele's)40 % M-Mode DIMENSIONS Left Atrium (MM)4.55 (2.5-4.0cm)IVSd0.85 (0.7-1.1cm) Aortic Root3.27 (2.2-3.7cm)LVDd6.92 (4.0-5.6cm) Aortic Cusp Exc.1.89 (1.5-2.0cm)PWd0.70 (0.7-1.1cm) FS (%) 23 %LVDs5.35 (2.0-3.8cm) LVEF (%)44 (>50%) Mitral Valve MV E Cghpnady907.2cm/sMV A Raecxywl151.1cm/sE/A ratio1.1 TDI Lateral E' Peak V6.64cm/sMedial E' Peak V4.16cm/sE/Lateral E'20.4 E/Medial E'32.5 Tricuspid Valve TR Peak [id number]/sTR Peak Gr.[id number] LEFT VENTRICLE The Left Ventricle is mildly dilated. There is normal left ventricular wall thickness. Left ventricle systolic function is borderline. The Ejection Fraction is 45-50%. There is normal LV segmental wall motion. The left ventricular diastolic function is normal. RIGHT VENTRICLE The right ventricle is normal size. There is normal right ventricular wall thickness. The right ventricular systolic function is normal. There is a pacemaker lead in the right ventricle. ATRIA The left atrium size is normal. The right atrium size is normal. The interatrial septum is intact with no evidence for an atrial septal defect. AORTIC VALVE The aortic valve is normal in structure. No aortic regurgitation is present. There is no aortic valvular stenosis. MITRAL VALVE The mitral valve is normal in structure. There is no evidence of mitral valve prolapse. There is no mitral valve stenosis. Mitral regurgitation is mild. TRICUSPID VALVE The tricuspid valve is normal in structure. There is mild tricuspid regurgitation. Right ventricular systolic pressure is estimated at 40-50 mmHg. There is moderate pulmonary hypertension. PULMONIC VALVE The pulmonic valve is not well visualized. There is mild pulmonic valvular regurgitation. GREAT VESSELS The aortic root is normal in size. PERICARDIAL EFFUSION There is no significant pericardial effusion. <Conclusion> Left ventricle systolic function is borderline. The Ejection Fraction is 45-50%. No aortic regurgitation is present. Mitral regurgitation is mild. There is mild tricuspid regurgitation. There is moderate pulmonary hypertension. There is mild pulmonic valvular regurgitation.
[2018-09-27 07:01] LABS: BASO # 0.1 K/uL (0.0-0.2); BASO % 1.1 % (0.0-2.0); EOS # 1.8 K/uL (0.0-0.7); EOS % 17.6 % (0.0-4.0); HEMOGLOBIN 8.8 g/dL (12.0-18.0); LYMPH # 1.3 K/uL (1.0-4.3); MEAN CELL VOLUME 81.5 fL (80.0-94.0); MEAN CORPUSCULAR HEMOGLOBIN 26.3 pg (27.0-31.0); MEAN CORPUSCULAR HGB CONC 32.3 g/dL (33.0-37.0); MEAN PLATELET VOLUME 8.8 fL (7.2-11.7); MONO # 1.1 K/uL (0.0-0.8); MONO % 10.6 % (0.0-10.0); NEUT # 5.9 K/uL (1.8-7.0); NEUT % 57.7 % (50.0-75.0); RBC 3.34 Mil/uL (4.40-5.90); RED CELL DISTRIBUTION WIDTH 15.6 % (11.5-14.5); WHITE BLOOD COUNT 10.3 K/uL (4.8-10.8)
[2018-09-27 07:23] LABS: CALCIUM 7.2 mg/dl (8.6-10.4)
[2018-09-27] MEDS: Vitamin B Complex/Vitamin C Tab PO SCH (10:27)
[2018-09-27] MEDS: Metoprolol Succinate 100 mg XL Tab PO SCH (10:27)
[2018-09-27] MEDS: Ferric Sodium Gluconat Complex 125 MG in Sodium Chloride 0.9% 100 ML IVPB SCH (13:06)
--- NOTE | 2018-09-27 21:36 | CP.PCM.PN ---
Subjective - Date & Time of Evaluation Date of Evaluation: 09/27/18 Time of Evaluation: 09:30 - Subjective Subjective: Events reviewed Objective - Vital Signs/Intake and Output Vital Signs (last 24 hours): Temp Pulse Resp BP Pulse Ox 97.9 F 76 20 157/85 H 95 09/27/18 17:53 09/27/18 17:53 09/27/18 17:53 09/27/18 18:09 09/27/18 17:53 - Medications Medications: Current Medications Calcium Acetate (Phoslo) 667 mg PO TIDCC [facility] Last Admin: 09/27/18 16:11 Dose: Not Given Dextrose (Dextrose 50% Inj) 0 ml IV STAT PRN; Protocol PRN Reason: Hypoglycemia Protocol Dextrose (Glutose 15) 0 gm PO ONCE PRN; Protocol PRN Reason: Hypoglycemia Protocol Epoetin Paul (Procrit) 10,000 unit IV MWF [facility] Last Admin: 09/26/18 17:03 Dose: 10,000 unit Furosemide (Lasix) 80 mg PO BID [facility] Last Admin: 09/27/18 18:09 Dose: 80 mg Glipizide (Glucotrol) 5 mg PO BID [facility] Last Admin: 09/27/18 18:09 Dose: 5 mg Glucagon (Glucagen Diagnostic Kit) 0 mg IM STAT PRN; Protocol PRN Reason: Hypoglycemia Protocol Hydralazine HCl (Apresoline) 25 mg PO TID [facility] Last Admin: 09/27/18 18:09 Dose: 25 mg Dextrose (Dextrose 5% In Water 1000 Ml) 1,000 mls @ 0 mls/hr IV .Q0M PRN; Protocol PRN Reason: Hypoglycemia Protocol Ferric Sodium Gluconate Complex 125 mg/ Sodium Chloride 110 mls @ 110 mls/hr IVPB Q24H [facility] Stop: 10/01/18 10:01 Last Admin: 09/27/18 13:06 Dose: 110 mls/hr Levothyroxine Sodium (Synthroid) 75 mcg PO DAILY@0630 [facility] Last Admin: 09/27/18 05:57 Dose: 75 mcg Metoprolol Succinate (Toprol Xl) 100 mg PO DAILY [facility] Last Admin: 09/27/18 10:27 Dose: 100 mg Oxycodone/Acetaminophen (Percocet 5/325 Mg Tab) 1 tab PO Q4H PRN PRN Reason: Pain, moderate (4-7) Stop: 09/28/18 14:46 Oxymetazoline HCl (Afrin 0.05%) 0 ml NS Q12H PRN PRN Reason: Nasal congestion Paricalcitol (Zemplar) 2 mcg IV MWF [facility] Last Admin: 09/26/18 17:03 Dose: 2 mcg Rosuvastatin Calcium (Crestor) 10 mg PO HS [facility] Last Admin: 09/26/18 21:19 Dose: 10 mg Vitamin B Complex/Vitamin C (Berocca) 1 tab PO DAILY [facility] Last Admin: 09/27/18 10:27 Dose: 1 tab - Labs Labs: 09/27/18 06:31 09/27/18 06:31 PT 12.2 SECONDS (9.7-12.2) 09/24/18 08:39 INR 1.1 09/24/18 08:39 APTT 32 SECONDS (21-34) 09/24/18 08:39 Assessment and Plan - Assessment and Plan (Free Text) Assessment: Physical Exam - Constitutional Appears: No Acute Distress - Head Exam Head Exam: ATRAUMATIC, NORMAL INSPECTION, NORMOCEPHALIC - Eye Exam Eye Exam: EOMI, Normal appearance. absent: Scleral icterus - ENT Exam ENT Exam: Mucous Membranes Moist, Normal Oropharynx - Neck Exam Neck exam: Positive for: Normal Inspection. Negative for: Tenderness, Thyromegaly - Respiratory Exam Respiratory Exam: Clear to Auscultation Bilateral, NORMAL BREATHING PATTERN. absent: Rales, Rhonchi, Wheezes - Cardiovascular Exam Cardiovascular Exam: REGULAR RHYTHM, +S1, +S2. absent: +S4, Systolic Murmur - GI/Abdominal Exam GI & Abdominal Exam: Normal Bowel Sounds, Soft. absent: Tenderness - Extremities Exam Extremities exam: Positive for: pedal edema, pedal pulses present. Negative for: calf tenderness - Neurological Exam Neurological exam: Alert, CN II-XII Intact, Oriented x3 - Psychiatric Exam Psychiatric exam: Normal Affect, Normal Mood - Skin Skin Exam: Normal Color, Warm Results - Vital Signs Recent Vital Signs: - EKG Data EKG Interpreted by: Myself - Imaging and Cardiology Chest x-ray Status: Image reviewed by me Assessment & Plan - Assessment and Plan (Free Text) Assessment: Preop eval for AVF for HD access Ischemic cardiomyopathy s/p CABG 11/2016 ([employer]) HX of CHB s/p dual chamber PPM 2016 ESRD now on HD HTN, DM, LIPIDS Chronic anemia HTN > mild-mod needs better control > cont toprol XL 100, cont hydralazine 25 TID > Suggest MARBELLA-I or ARB now that he is on HD: monitor K+ CAD/CABG/Ischemic cardiomyopathy > ECHO done today 09/26/18: Images directly seen by me: Moderate LV dysfunction EF ~40%, mild LVH, Grade 2 DD with inc LAP, mild dilated IVC 2.2 with moderate PASP 45-50mmHg, mild MR, TR, sclerotic AV and MAC. > Patient is volume overloaded despite lasix 80 BID > add metolazone 5 daily > cont HD consecutive sessions to improve volume status > Cont long acting toprol and statin, ? Consider MARBELLA-I or ARB and aldactone 12.5 daily now that he is on HD. > Add ASA 81 if no acute bleeding given hx of chronic CAD/CABG > Patient may proceed with AVF surgery with acceptable risk: once his volume status improves. > Chronic anemia Hgb 7.6: consider supportive Rx , evaluate for any occult blood loss.
--- NOTE | 2018-09-27 22:22 | CP.PCM.PN ---
Subjective - Date & Time of Evaluation Date of Evaluation: 09/27/18 Time of Evaluation: 09:30 - Subjective Subjective: clinically same Objective - Vital Signs/Intake and Output Vital Signs (last 24 hours): Temp Pulse Resp BP Pulse Ox 97.9 F 76 20 157/85 H 95 09/27/18 17:53 09/27/18 17:53 09/27/18 17:53 09/27/18 18:09 09/27/18 17:53 - Medications Medications: Current Medications Calcium Acetate (Phoslo) 667 mg PO TIDCC [facility] Last Admin: 09/27/18 16:11 Dose: Not Given Dextrose (Dextrose 50% Inj) 0 ml IV STAT PRN; Protocol PRN Reason: Hypoglycemia Protocol Dextrose (Glutose 15) 0 gm PO ONCE PRN; Protocol PRN Reason: Hypoglycemia Protocol Epoetin Paul (Procrit) 10,000 unit IV MWF [facility] Last Admin: 09/26/18 17:03 Dose: 10,000 unit Furosemide (Lasix) 80 mg PO BID [facility] Last Admin: 09/27/18 18:09 Dose: 80 mg Glipizide (Glucotrol) 5 mg PO BID [facility] Last Admin: 09/27/18 18:09 Dose: 5 mg Glucagon (Glucagen Diagnostic Kit) 0 mg IM STAT PRN; Protocol PRN Reason: Hypoglycemia Protocol Hydralazine HCl (Apresoline) 25 mg PO TID [facility] Last Admin: 09/27/18 18:09 Dose: 25 mg Dextrose (Dextrose 5% In Water 1000 Ml) 1,000 mls @ 0 mls/hr IV .Q0M PRN; Protocol PRN Reason: Hypoglycemia Protocol Ferric Sodium Gluconate Complex 125 mg/ Sodium Chloride 110 mls @ 110 mls/hr IVPB Q24H [facility] Stop: 10/01/18 10:01 Last Admin: 09/27/18 13:06 Dose: 110 mls/hr Levothyroxine Sodium (Synthroid) 75 mcg PO DAILY@0630 [facility] Last Admin: 09/27/18 05:57 Dose: 75 mcg Metoprolol Succinate (Toprol Xl) 100 mg PO DAILY [facility] Last Admin: 09/27/18 10:27 Dose: 100 mg Oxycodone/Acetaminophen (Percocet 5/325 Mg Tab) 1 tab PO Q4H PRN PRN Reason: Pain, moderate (4-7) Stop: 09/28/18 14:46 Oxymetazoline HCl (Afrin 0.05%) 0 ml NS Q12H PRN PRN Reason: Nasal congestion Paricalcitol (Zemplar) 2 mcg IV MWF [facility] Last Admin: 09/26/18 17:03 Dose: 2 mcg Rosuvastatin Calcium (Crestor) 10 mg PO HS [facility] Last Admin: 09/27/18 21:59 Dose: 10 mg Vitamin B Complex/Vitamin C (Berocca) 1 tab PO DAILY [facility] Last Admin: 09/27/18 10:27 Dose: 1 tab - Labs Labs: 09/27/18 06:31 09/27/18 06:31 PT 12.2 SECONDS (9.7-12.2) 09/24/18 08:39 INR 1.1 09/24/18 08:39 APTT 32 SECONDS (21-34) 09/24/18 08:39
[2018-09-28] MEDS: Levothyroxine 75 MCG TAB PO SCH (06:02)
--- NOTE | 2018-09-28 08:10 | CP.PCM.PN ---
Subjective - Date & Time of Evaluation Date of Evaluation: 09/28/18 Time of Evaluation: 07:00 - Subjective Subjective: Vascular Surgery Pt Seen and examined. No new issues. OR tomorrow for AVF. Answered questions for pt this AM. Objective - Vital Signs/Intake and Output Vital Signs (last 24 hours): Temp Pulse Resp BP Pulse Ox 98.4 F 70 20 134/67 96 09/28/18 07:00 09/28/18 07:00 09/28/18 07:00 09/28/18 07:00 09/28/18 07:00 Intake and Output: 09/28/18 09/28/18 06:59 18:59 Intake Total 118 Balance 118 - Medications Medications: Current Medications Calcium Acetate (Phoslo) 667 mg PO TIDCC [facility] Last Admin: 09/27/18 16:11 Dose: Not Given Dextrose (Dextrose 50% Inj) 0 ml IV STAT PRN; Protocol PRN Reason: Hypoglycemia Protocol Dextrose (Glutose 15) 0 gm PO ONCE PRN; Protocol PRN Reason: Hypoglycemia Protocol Epoetin Paul (Procrit) 10,000 unit IV MWF [facility] Last Admin: 09/26/18 17:03 Dose: 10,000 unit Furosemide (Lasix) 80 mg PO BID [facility] Last Admin: 09/27/18 18:09 Dose: 80 mg Glipizide (Glucotrol) 5 mg PO BID [facility] Last Admin: 09/27/18 18:09 Dose: 5 mg Glucagon (Glucagen Diagnostic Kit) 0 mg IM STAT PRN; Protocol PRN Reason: Hypoglycemia Protocol Hydralazine HCl (Apresoline) 25 mg PO TID [facility] Last Admin: 09/27/18 18:09 Dose: 25 mg Ferric Sodium Gluconate Complex 125 mg/ Sodium Chloride 110 mls @ 110 mls/hr IVPB Q24H [facility] Stop: 10/01/18 10:01 Last Admin: 09/27/18 13:06 Dose: 110 mls/hr Levothyroxine Sodium (Synthroid) 75 mcg PO DAILY@0630 [facility] Last Admin: 09/28/18 06:02 Dose: 75 mcg Metoprolol Succinate (Toprol Xl) 100 mg PO DAILY [facility] Last Admin: 09/27/18 10:27 Dose: 100 mg Oxycodone/Acetaminophen (Percocet 5/325 Mg Tab) 1 tab PO Q4H PRN PRN Reason: Pain, moderate (4-7) Stop: 09/28/18 14:46 Oxymetazoline HCl (Afrin 0.05%) 0 ml NS Q12H PRN PRN Reason: Nasal congestion Paricalcitol (Zemplar) 2 mcg IV MWF [facility] Last Admin: 09/26/18 17:03 Dose: 2 mcg Rosuvastatin Calcium (Crestor) 10 mg PO HS [facility] Last Admin: 09/27/18 21:59 Dose: 10 mg Vitamin B Complex/Vitamin C (Berocca) 1 tab PO DAILY [facility] Last Admin: 09/27/18 10:27 Dose: 1 tab - Labs Labs: 09/27/18 06:31 09/27/18 06:31 PT 12.2 SECONDS (9.7-12.2) 09/24/18 08:39 INR 1.1 09/24/18 08:39 APTT 32 SECONDS (21-34) 09/24/18 08:39 - Constitutional Appears: Non-toxic, No Acute Distress - Head Exam Head Exam: ATRAUMATIC, NORMOCEPHALIC - Eye Exam Eye Exam: EOMI. absent: Scleral icterus - Respiratory Exam Respiratory Exam: NORMAL BREATHING PATTERN. absent: Accessory Muscle Use, Respiratory Distress - GI/Abdominal Exam GI & Abdominal Exam: Soft. absent: Distended, Tenderness - Extremities Exam Extremities Exam: Normal Capillary Refill. absent: Calf Tenderness - Neurological Exam Neurological Exam: Alert, Awake, Oriented x3 - Skin Skin Exam: Dry, Warm Assessment and Plan - Assessment and Plan (Free Text) Assessment: 62M with ESRD Plan: AM labs NPO p MN OR tomorrow for AVF R arm precautions D/W Dr. Ella Miller PGY4
[2018-09-28] MEDS: Vitamin B Complex/Vitamin C Tab PO SCH (09:13)
[2018-09-28] MEDS: Metoprolol Succinate 100 mg XL Tab PO SCH (09:15)
--- NOTE | 2018-09-28 09:36 | CP.PCM.PN ---
Subjective - Date & Time of Evaluation Date of Evaluation: 09/28/18 Time of Evaluation: 09:33 - Subjective Subjective: Events reviewed Objective - Vital Signs/Intake and Output Vital Signs (last 24 hours): Temp Pulse Resp BP Pulse Ox 98.4 F 70 20 150/79 96 09/28/18 07:00 09/28/18 07:00 09/28/18 07:00 09/28/18 09:16 09/28/18 07:00 Intake and Output: 09/28/18 09/28/18 06:59 18:59 Intake Total 118 Balance 118 - Medications Medications: Current Medications Calcium Acetate (Phoslo) 667 mg PO TIDCC [facility] Last Admin: 09/28/18 08:44 Dose: 667 mg Dextrose (Dextrose 50% Inj) 0 ml IV STAT PRN; Protocol PRN Reason: Hypoglycemia Protocol Dextrose (Glutose 15) 0 gm PO ONCE PRN; Protocol PRN Reason: Hypoglycemia Protocol Epoetin Paul (Procrit) 10,000 unit IV MWF [facility] Last Admin: 09/26/18 17:03 Dose: 10,000 unit Furosemide (Lasix) 80 mg PO BID [facility] Last Admin: 09/28/18 09:16 Dose: 80 mg Glipizide (Glucotrol) 5 mg PO BID [facility] Last Admin: 09/28/18 09:15 Dose: 5 mg Glucagon (Glucagen Diagnostic Kit) 0 mg IM STAT PRN; Protocol PRN Reason: Hypoglycemia Protocol Hydralazine HCl (Apresoline) 25 mg PO TID [facility] Last Admin: 09/28/18 09:13 Dose: 25 mg Ferric Sodium Gluconate Complex 125 mg/ Sodium Chloride 110 mls @ 110 mls/hr IVPB Q24H [facility] Stop: 10/01/18 10:01 Last Admin: 09/27/18 13:06 Dose: 110 mls/hr Levothyroxine Sodium (Synthroid) 75 mcg PO DAILY@0630 [facility] Last Admin: 09/28/18 06:02 Dose: 75 mcg Metoprolol Succinate (Toprol Xl) 100 mg PO DAILY [facility] Last Admin: 09/28/18 09:15 Dose: 100 mg Oxycodone/Acetaminophen (Percocet 5/325 Mg Tab) 1 tab PO Q4H PRN PRN Reason: Pain, moderate (4-7) Stop: 09/28/18 14:46 Oxymetazoline HCl (Afrin 0.05%) 0 ml NS Q12H PRN PRN Reason: Nasal congestion Paricalcitol (Zemplar) 2 mcg IV MWF [facility] Last Admin: 09/26/18 17:03 Dose: 2 mcg Rosuvastatin Calcium (Crestor) 10 mg PO HS [facility] Last Admin: 09/27/18 21:59 Dose: 10 mg Vitamin B Complex/Vitamin C (Berocca) 1 tab PO DAILY [facility] Last Admin: 09/28/18 09:13 Dose: 1 tab - Labs Labs: 09/27/18 06:31 09/27/18 06:31 PT 12.2 SECONDS (9.7-12.2) 09/24/18 08:39 INR 1.1 09/24/18 08:39 APTT 32 SECONDS (21-34) 09/24/18 08:39 Assessment and Plan - Assessment and Plan (Free Text) Assessment: Physical Exam - Constitutional Appears: No Acute Distress - Head Exam Head Exam: ATRAUMATIC, NORMAL INSPECTION, NORMOCEPHALIC - Eye Exam Eye Exam: EOMI, Normal appearance. absent: Scleral icterus - ENT Exam ENT Exam: Mucous Membranes Moist, Normal Oropharynx - Neck Exam Neck exam: Positive for: Normal Inspection. Negative for: Tenderness, Th yromegaly - Respiratory Exam Respiratory Exam: Clear to Auscultation Bilateral, NORMAL BREATHING PATTERN. absent: Rales, Rhonchi, Wheezes - Cardiovascular Exam Cardiovascular Exam: REGULAR RHYTHM, +S1, +S2. absent: +S4, Systolic Murmur - GI/Abdominal Exam GI & Abdominal Exam: Normal Bowel Sounds, Soft. absent: Tenderness - Extremities Exam Extremities exam: Positive for: pedal edema, pedal pulses present. Negative for: calf tenderness - Neurological Exam Neurological exam: Alert, CN II-XII Intact, Oriented x3 - Psychiatric Exam Psychiatric exam: Normal Affect, Normal Mood - Skin Skin Exam: Normal Color, Warm Results - Vital Signs Recent Vital Signs: - EKG Data EKG Interpreted by: Myself, NSR, V pacing - Imaging and Cardiology Chest x-ray Status: Image reviewed by me Assessment & Plan - Assessment and Plan (Free Text) Assessment: Preop eval for AVF for HD access Ischemic cardiomyopathy s/p CABG 11/2016 ([employer]) HX of CHB s/p dual chamber PPM 2016 ESRD now on HD HTN, DM, LIPIDS Chronic anemia HTN > mild-mod needs better control > cont toprol XL 100 > Suggest MARBELLA-I or ARB now that he is on HD: monitor K+ CAD/CABG/Ischemic cardiomyopathy > ECHO done today 09/26/18: Images directly seen by me: Moderate LV dysfunction EF ~40%, mild LVH, Grade 2 DD with inc LAP, mild dilated IVC 2.2 with moderate PASP 45-50mmHg, mild MR, TR, sclerotic AV and MAC. > Continue high doses of diuretic volume status is improving > cont HD consecutive sessions to improve volume status > Cont long acting toprol and statin, ? Consider MARBELLA-I or ARB and aldactone 12.5 daily now that he is on HD. > Add ASA 81 if no acute bleeding given hx of chronic CAD/CABG PATIENT IS ACCEPTABLE RISK FOR AVF PLACEMENT. NO FURTHER CARDIAC WORK UP IS REQUIRED.
[2018-09-28] MEDS: Ferric Sodium Gluconat Complex 125 MG in Sodium Chloride 0.9% 100 ML IVPB SCH (09:51)
--- NOTE | 2018-09-28 19:34 | CP.PCM.PN ---
Subjective - Date & Time of Evaluation Date of Evaluation: 09/28/18 Time of Evaluation: 10:45 - Subjective Subjective: clinically same Objective - Vital Signs/Intake and Output Vital Signs (last 24 hours): Temp Pulse Resp BP Pulse Ox 97.9 F 64 20 174/82 H 98 09/28/18 16:00 09/28/18 16:00 09/28/18 16:00 09/28/18 17:47 09/28/18 16:00 - Medications Medications: Current Medications Calcium Acetate (Phoslo) 667 mg PO TIDCC [facility] Last Admin: 09/28/18 17:47 Dose: 667 mg Dextrose (Dextrose 50% Inj) 0 ml IV STAT PRN; Protocol PRN Reason: Hypoglycemia Protocol Dextrose (Glutose 15) 0 gm PO ONCE PRN; Protocol PRN Reason: Hypoglycemia Protocol Epoetin Paul (Procrit) 10,000 unit IV MWF [facility] Last Admin: 09/26/18 17:03 Dose: 10,000 unit Furosemide (Lasix) 80 mg PO BID [facility] Last Admin: 09/28/18 17:47 Dose: 80 mg Glipizide (Glucotrol) 5 mg PO BID [facility] Last Admin: 09/28/18 17:47 Dose: 5 mg Glucagon (Glucagen Diagnostic Kit) 0 mg IM STAT PRN; Protocol PRN Reason: Hypoglycemia Protocol Hydralazine HCl (Apresoline) 25 mg PO TID [facility] Last Admin: 09/28/18 17:47 Dose: 25 mg Ferric Sodium Gluconate Complex 125 mg/ Sodium Chloride 110 mls @ 110 mls/hr IVPB Q24H [facility] Stop: 10/01/18 10:01 Last Admin: 09/28/18 09:51 Dose: 110 mls/hr Levothyroxine Sodium (Synthroid) 75 mcg PO DAILY@0630 [facility] Last Admin: 09/28/18 06:02 Dose: 75 mcg Metoprolol Succinate (Toprol Xl) 100 mg PO DAILY [facility] Last Admin: 09/28/18 09:15 Dose: 100 mg Oxymetazoline HCl (Afrin 0.05%) 0 ml NS Q12H PRN PRN Reason: Nasal congestion Paricalcitol (Zemplar) 2 mcg IV MWF [facility] Last Admin: 09/26/18 17:03 Dose: 2 mcg Rosuvastatin Calcium (Crestor) 10 mg PO HS [facility] Last Admin: 09/27/18 21:59 Dose: 10 mg Vitamin B Complex/Vitamin C (Berocca) 1 tab PO DAILY [facility] Last Admin: 09/28/18 09:13 Dose: 1 tab - Labs Labs: 09/27/18 06:31 09/27/18 06:31 PT 12.2 SECONDS (9.7-12.2) 09/24/18 08:39 INR 1.1 09/24/18 08:39 APTT 32 SECONDS (21-34) 09/24/18 08:39
[2018-09-29 06:20] LABS: BASO # 0.1 K/uL (0.0-0.2); BASO % 0.7 % (0.0-2.0); EOS # 1.9 K/uL (0.0-0.7); EOS % 16.7 % (0.0-4.0); HEMOGLOBIN 8.8 g/dL (12.0-18.0); LYMPH # 1.1 K/uL (1.0-4.3); LYMPH % 9.5 % (20.0-40.0); MEAN CELL VOLUME 82.3 fL (80.0-94.0); MEAN CORPUSCULAR HEMOGLOBIN 26.1 pg (27.0-31.0); MEAN CORPUSCULAR HGB CONC 31.7 g/dL (33.0-37.0); MEAN PLATELET VOLUME 8.6 fL (7.2-11.7); MONO # 1.1 K/uL (0.0-0.8); MONO % 9.7 % (0.0-10.0); NEUT # 7.4 K/uL (1.8-7.0); NEUT % 63.4 % (50.0-75.0); NRBC % 0.2 % (0.0-2.0); PLATELET COUNT 181 K/uL (130-400); RBC 3.37 Mil/uL (4.40-5.90); RED CELL DISTRIBUTION WIDTH 15.4 % (11.5-14.5); WHITE BLOOD COUNT 11.7 K/uL (4.8-10.8)
[2018-09-29 06:22] LABS: PROTHROMBIN TIME 11.3 SECONDS (9.7-12.2)
[2018-09-29 06:23] LABS: CALCIUM 7.7 mg/dl (8.6-10.4)
[2018-09-29] MEDS: Levothyroxine 75 MCG TAB PO SCH (06:45)
[2018-09-29] MEDS ORDERED: ceFAZolin 1 gm in NS 1 GM/100 ML BAG IVPB ONE (07:22)
[2018-09-29] MEDS ORDERED: Lidocaine 1% 20 MG/2 ML PF AMP ONE (07:23)
[2018-09-29] MEDS ORDERED: HEPARIN-NS 5,000 UNITS/500 ML 0 UNIT/0 ML BAG IV ONE (07:23)
[2018-09-29] MEDS ORDERED: HEPARIN-NS 5,000 UNITS/500 ML 5,000 UNIT/500 ML BAG IV ONE (07:38)
[2018-09-29] MEDS ORDERED: Propofol 10 mg/ml Inj (20 ML) ONE (07:45)
[2018-09-29 08:09] LABS: ANISOCYTOSIS SLIGHT; BASOPHIL 1 % (0-2); EOSINOPHIL 15 % (0-4); LYMPHOCYTE 9 % (20-40); MONOCYTE 8 % (0-10); NEUTROPHIL 67 % (50-75); PLATELET ESTIMATE NORMAL (NORMAL); TOTAL CELLS COUNTED 100
[2018-09-29 08:10] LABS: HYPOCHROMIC SLIGHT
[2018-09-29] MEDS ORDERED: Bupivacaine 0.25% 20 ML INJ IJ ONE (08:10)
[2018-09-29] MEDS ORDERED: Lidocaine 2% MPF (5 ml) Inj ONE (08:10)
[2018-09-29 08:11] LABS: LARGE PLATELETS PRESENT; POLYCHROMIC SLIGHT
[2018-09-29] MEDS ORDERED: Midazolam 2 MG/2 ML VIAL ONE (08:12)
[2018-09-29] MEDS ORDERED: Lidocaine Hydrochloride 20 ML INJ ONE (09:00)
[2018-09-29] MEDS ORDERED: Dextrose 50% SYRINGE Inj (50 ml) ONE (09:16)
[2018-09-29] MEDS ORDERED: Papaverine Hydrochloride 30 mg/ml (2ml) ONE (09:27)
--- NOTE | 2018-09-29 10:26 | PCM.SURG1 ---
Surgeon's Initial Post Op Note - Surgeon's Notes Surgeon: Dr. Jaramillo Sample Paster: Dr. Flores PGY3 Type of Anesthesia: General Endo Pre-Operative Diagnosis: ESRD Operative Findings: See opertaive dictation Post-Operative Diagnosis: ESRD Operation Performed: Right arm suffbox avf Specimen/Specimens Removed: None Estimated Blood Loss: EBL {In ML}: 15 Blood Products Given: N/A Drains Used: No Drains Post-Op Condition: Good Date of Surgery/Procedure: 09/29/18 Time of Surgery/Procedure: 10:25
[2018-09-29] MEDS: Vitamin B Complex/Vitamin C Tab PO SCH (10:53)
[2018-09-29] MEDS: Ferric Sodium Gluconat Complex 125 MG in Sodium Chloride 0.9% 100 ML IVPB SCH ×2 (10:54→19:20)
[2018-09-29] MEDS: Metoprolol Succinate 100 mg XL Tab PO SCH (10:55)
--- NOTE | 2018-09-29 12:26 | CP.PCM.PN ---
Subjective - Date & Time of Evaluation Date of Evaluation: 09/29/18 Time of Evaluation: 11:15 - Subjective Subjective: clinically same Objective - Vital Signs/Intake and Output Vital Signs (last 24 hours): Temp Pulse Resp BP Pulse Ox 97.8 F 67 15 131/61 100 09/29/18 11:45 09/29/18 11:45 09/29/18 11:45 09/29/18 11:45 09/29/18 11:45 Intake and Output: 09/29/18 09/29/18 06:59 18:59 Intake Total 255 Output Total 300 Balance -300 255 - Medications Medications: Current Medications Calcium Acetate (Phoslo) 667 mg PO TIDCC [facility] Last Admin: 09/29/18 10:54 Dose: Not Given Dextrose (Dextrose 50% Inj) 0 ml IV STAT PRN; Protocol PRN Reason: Hypoglycemia Protocol Dextrose (Glutose 15) 0 gm PO ONCE PRN; Protocol PRN Reason: Hypoglycemia Protocol Epoetin Paul (Procrit) 10,000 unit IV [facility] [place] [place] Last Admin: 09/26/18 17:03 Dose: 10,000 unit Furosemide (Lasix) 80 mg PO BID [facility] Last Admin: 09/29/18 10:54 Dose: Not Given Glipizide (Glucotrol) 5 mg PO BID [facility] Last Admin: 09/29/18 10:56 Dose: Not Given Glucagon (Glucagen Diagnostic Kit) 0 mg IM STAT PRN; Protocol PRN Reason: Hypoglycemia Protocol Hydralazine HCl (Apresoline) 25 mg PO TID [facility] Last Admin: 09/29/18 10:53 Dose: Not Given Ferric Sodium Gluconate Complex 125 mg/ Sodium Chloride 110 mls @ 110 mls/hr I VPB Q24H [facility] Stop: 10/01/18 10:01 Last Admin: 09/29/18 10:54 Dose: Not Given Levothyroxine Sodium (Synthroid) 75 mcg PO DAILY@0630 [facility] Last Admin: 09/29/18 06:45 Dose: Not Given Metoprolol Succinate (Toprol Xl) 100 mg PO DAILY [facility] Last Admin: 09/29/18 10:55 Dose: Not Given Oxymetazoline HCl (Afrin 0.05%) 0 ml NS Q12H PRN PRN Reason: Nasal congestion Paricalcitol (Zemplar) 2 mcg IV MWF [facility] Last Admin: 09/26/18 17:03 Dose: 2 mcg Rosuvastatin Calcium (Crestor) 10 mg PO HS [facility] Last Admin: 09/28/18 21:20 Dose: 10 mg Vitamin B Complex/Vitamin C (Berocca) 1 tab PO DAILY [facility] Last Admin: 09/29/18 10:53 Dose: Not Given - Labs Labs: 09/29/18 06:05 09/29/18 06:05 PT 11.3 SECONDS (9.7-12.2) 09/29/18 06:05 INR 1.0 09/29/18 06:05 APTT 34 SECONDS (21-34) 09/29/18 06:05
--- NOTE | 2018-09-29 13:44 | CP.PCM.PN ---
Subjective - Date & Time of Evaluation Date of Evaluation: 09/29/18 Time of Evaluation: 13:40 - Subjective Subjective: Patient seen and examined at bedside status post AVF Fistula procedure. Patient denies any fevers, chills, Chest Pain, SOB, abdominal pain, or changes in bowel habits. Objective - Vital Signs/Intake and Output Vital Signs (last 24 hours): Temp Pulse Resp BP Pulse Ox 97.8 F 67 15 131/61 100 09/29/18 11:45 09/29/18 11:45 09/29/18 11:45 09/29/18 11:45 09/29/18 11:45 Intake and Output: 09/29/18 09/29/18 06:59 18:59 Intake Total 255 Output Total 300 Balance -300 255 - Medications Medications: Current Medications Calcium Acetate (Phoslo) 667 mg PO TIDCC [facility] Last Admin: 09/29/18 10:54 Dose: Not Given Dextrose (Dextrose 50% Inj) 0 ml IV STAT PRN; Protocol PRN Reason: Hypoglycemia Protocol Dextrose (Glutose 15) 0 gm PO ONCE PRN; Protocol PRN Reason: Hypoglycemia Protocol Epoetin Paul (Procrit) 10,000 unit IV MWF [facility] Last Admin: 09/26/18 17:03 Dose: 10,000 unit Furosemide (Lasix) 80 mg PO BID [facility] Last Admin: 09/29/18 10:54 Dose: Not Given Glipizide (Glucotrol) 5 mg PO BID [facility] Last Admin: 09/29/18 10:56 Dose: Not Given Glucagon (Glucagen Diagnostic Kit) 0 mg IM STAT PRN; Protocol PRN Reason: Hypoglycemia Protocol Hydralazine HCl (Apresoline) 25 mg PO TID [facility] Last Admin: 09/29/18 10:53 Dose: Not Given Ferric Sodium Gluconate Complex 125 mg/ Sodium Chloride 110 mls @ 110 mls/hr IVPB Q24H [facility] Stop: 10/01/18 10:01 Last Admin: 09/29/18 10:54 Dose: Not Given Levothyroxine Sodium (Synthroid) 75 mcg PO DAILY@0630 [facility] Last Admin: 09/29/18 06:45 Dose: Not Given Metoprolol Succinate (Toprol Xl) 100 mg PO DAILY [facility] Last Admin: 09/29/18 10:55 Dose: Not Given Oxymetazoline HCl (Afrin 0.05%) 0 ml NS Q12H PRN PRN Reason: Nasal congestion Paricalcitol (Zemplar) 2 mcg IV MWF [facility] Last Admin: 09/26/18 17:03 Dose: 2 mcg Rosuvastatin Calcium (Crestor) 10 mg PO HS [facility] Last Admin: 09/28/18 21:20 Dose: 10 mg Vitamin B Complex/Vitamin C (Berocca) 1 tab PO DAILY [facility] Last Admin: 09/29/18 10:53 Dose: Not Given - Labs Labs: 09/29/18 06:05 09/29/18 06:05 PT 11.3 SECONDS (9.7-12.2) 09/29/18 06:05 INR 1.0 09/29/18 06:05 APTT 34 SECONDS (21-34) 09/29/18 06:05 - Constitutional Appears: Well, Non-toxic, No Acute Distress - Head Exam Head Exam: ATRAUMATIC, NORMAL INSPECTION - Eye Exam Eye Exam: EOMI, Normal appearance - ENT Exam ENT Exam: Mucous Membranes Moist - Respiratory Exam Respiratory Exam: Decreased Breath Sounds, Clear to Ausculation Bilateral. absent: Accessory Muscle Use, Rhonchi, Wheezes, Respiratory Distress - Cardiovascular Exam Cardiovascular Exam: RRR, +S1, +S2 - GI/Abdominal Exam GI & Abdominal Exam: Soft, Normal Bowel Sounds. absent: Tenderness - Neurological Exam Neurological Exam: Awake, Oriented x3 - Skin Skin Exam: Dry, Intact, Normal Color, Warm Assessment and Plan - Assessment and Plan (Free Text) Plan: CKD, newly placed on dialysis Anemia of Chronic Disease - Surgery consulted, Dr. Jaramillo - permacath and AVF Management: - Continue with Phoslo, Iron infusions - Permacath placed 09/25/18 - POD #1 of AVF in Right snuffbox Epistaxis - Rhino rocket inserted - Will continue to monitor Hypertension - Continue with Hydralazine and Lopressor Diabetes Mellitus - Accuchecks - Continue with Glipizide - Hypoglycemic protocol in place Hyperlipidemia - Continue with statin Diastolic Heart Failure - ECHO (2016): LVEF 60% - ECHO (09/26/18): EF 45-50%, Mild Tricuspid/Mitral Regurgitation, Moderate Pulm HTN. - Continue with lasix 80mg PO BID CAD s/p CABG - Cardiology consulted, Recs Appreciated. Hypothyroidism - Continue with Synthroid Hx of 3rd Degree AV Block s/p PPM Hx of TB Prophylactic Measures - GI PPX: not indicated - DVT PPX: SCDs, VTE to be resumed once epistaxis resolves and if not going for AVF Dispo: Plan for DC after Dialysis on Saturday. All management as per Dr. Avelino Carter, Pascale Beltran, DO, PGY2
[2018-09-29] MEDS: Epoetin Alfa 10,000 unit/ml Dialysis IV SCH (19:19)
[2018-09-29] MEDS: Paricalcitol 2 mcg/ml Inj IV SCH (19:20)
--- NOTE | 2018-09-29 21:10 | OP ---
PROCEDURE DATE: 09/29/2018 PREOPERATIVE DIAGNOSIS: Renal failure. POSTOPERATIVE DIAGNOSIS: Renal failure. PROCEDURE CARRIED OUT: Snuffbox fistula, right wrist. SURGEON: Akin Jaramillo Jr., MD MANAGEMENT EXPERT: Jose Juan Flores DO ANESTHESIOLOGIST: Andie Cruz CRNA. ANESTHESIA: Block. INDICATIONS FOR THE PROCEDURE: The patient is a 62-year-old man with diabetes and renal failure. Presently dialyzed by means of a right jugular vein catheter which was recently placed. The patient used a left-sided pacemaker. OPERATIVE FINDINGS: Fistula was created between the branch of the radial artery, the superficial branch, and the adjacent cephalic vein. At the end of the procedure, there was excellent flow to the fistula and easily palpable thrill. DESCRIPTION OF PROCEDURE: The patient was given axillary block intravenous antibiotics. The vein was mapped with the use of ultrasound and an end-to-side fistula was created from the end of the cephalic vein to the side of a branch of the superficial radial artery using loupe magnification and heparin anticoagulation. After closing the wound, there was excellent hemostasis and the procedure was terminated. Blood loss was 10 mL. Operation carried out was snuffbox fistula, right wrist. Akin Jaramillo Jr., MD cc: Aline Carter MD
[2018-09-30] MEDS: Levothyroxine 75 MCG TAB PO SCH (06:29)
--- NOTE | 2018-09-30 07:22 | CP.PCM.PN ---
Subjective - Date & Time of Evaluation Date of Evaluation: 09/30/18 Time of Evaluation: 07:19 - Subjective Subjective: SURGERY NOTE FOR DR. COURTNEY 62M seen and examined at bedside. No acute events overnight. Patient denies pain at site of operation, denies pain in hand, denies numbness and tingling. Denies fevers, chills. Objective - Vital Signs/Intake and Output Vital Signs (last 24 hours): Temp Pulse Resp BP Pulse Ox 98.5 F 79 20 172/78 H 95 09/29/18 23:00 09/29/18 23:00 09/29/18 23:00 09/29/18 23:00 09/29/18 23:00 Intake and Output: 09/30/18 09/30/18 06:59 18:59 Output Total 300 Balance -300 - Medications Medications: Current Medications Calcium Acetate (Phoslo) 667 mg PO TIDCC [facility] Last Admin: 09/29/18 17:19 Dose: 667 mg Dextrose (Dextrose 50% Inj) 0 ml IV STAT PRN; Protocol PRN Reason: Hypoglycemia Protocol Dextrose (Glutose 15) 0 gm PO ONCE PRN; Protocol PRN Reason: Hypoglycemia Protocol Epoetin Paul (Procrit) 10,000 unit IV MWF [facility] Last Admin: 09/29/18 19:19 Dose: 10,000 unit Furosemide (Lasix) 80 mg PO BID [facility] Last Admin: 09/29/18 17:19 Dose: 80 mg Glipizide (Glucotrol) 5 mg PO BID [facility] Last Admin: 09/29/18 17:19 Dose: 5 mg Glucagon (Glucagen Diagnostic Kit) 0 mg IM STAT PRN; Protocol PRN Reason: Hypoglycemia Protocol Hydralazine HCl (Apresoline) 25 mg PO TID [facility] Last Admin: 09/29/18 17:19 Dose: 25 mg Ferric Sodium Gluconate Complex 125 mg/ Sodium Chloride 110 mls @ 110 mls/hr IVPB Q24H [facility] Stop: 10/01/18 10:01 Last Admin: 09/29/18 19:20 Dose: 110 mls/hr Levothyroxine Sodium (Synthroid) 75 mcg PO DAILY@0630 [facility] Last Admin: 09/30/18 06:29 Dose: 75 mcg Metoprolol Succinate (Toprol Xl) 100 mg PO DAILY [facility] Last Admin: 09/29/18 10:55 Dose: Not Given Oxymetazoline HCl (Afrin 0.05%) 0 ml NS Q12H PRN PRN Reason: Nasal congestion Paricalcitol (Zemplar) 2 mcg IV MWF [facility] Last Admin: 09/29/18 19:20 Dose: 2 mcg Rosuvastatin Calcium (Crestor) 10 mg PO HS [facility] Last Admin: 09/29/18 21:40 Dose: 10 mg Vitamin B Complex/Vitamin C (Berocca) 1 tab PO DAILY [facility] Last Admin: 09/29/18 10:53 Dose: Not Given - Labs Labs: 09/29/18 06:05 09/29/18 06:05 PT 11.3 SECONDS (9.7-12.2) 09/29/18 06:05 INR 1.0 09/29/18 06:05 APTT 34 SECONDS (21-34) 09/29/18 06:05 - Constitutional Appears: Non-toxic, No Acute Distress - Respiratory Exam Respiratory Exam: Clear to Ausculation Bilateral, NORMAL BREATHING PATTERN - Cardiovascular Exam Cardiovascular Exam: REGULAR RHYTHM, +S1, +S2 - GI/Abdominal Exam GI & Abdominal Exam: Soft. absent: Distended, Firm, Guarding, Rigid, Tenderness, Rebound - Extremities Exam Extremities Exam: absent: Pedal Edema, Tenderness Additional comments: right arm fistula thrill palpable, bruit audible, normal color of skin, no decrease in sensation, dressing CDI - Neurological Exam Neurological Exam: Alert, Awake Assessment and Plan - Assessment and Plan (Free Text) Assessment: 62M s/p right arm AV fistula POD#1 Plan: - monitor thrill - monitor dressing - allow fistula to mature - Dialysis via Permacath Further recs discuss with Dr. Ella Deras, PGY3
--- NOTE | 2018-09-30 08:11 | CP.PCM.PN ---
Subjective - Date & Time of Evaluation Date of Evaluation: 09/30/18 Time of Evaluation: 08:09 - Subjective Subjective: Post op Day #1 Objective - Vital Signs/Intake and Output Vital Signs (last 24 hours): Temp Pulse Resp BP Pulse Ox 98.3 F 79 20 128/70 96 09/30/18 07:00 09/30/18 07:00 09/30/18 07:00 09/30/18 07:00 09/30/18 07:00 Intake and Output: 09/30/18 09/30/18 06:59 18:59 Output Total 300 Balance -300 - Medications Medications: Current Medications Calcium Acetate (Phoslo) 667 mg PO TIDCC [facility] Last Admin: 09/29/18 17:19 Dose: 667 mg Dextrose (Dextrose 50% Inj) 0 ml IV STAT PRN; Protocol PRN Reason: Hypoglycemia Protocol Dextrose (Glutose 15) 0 gm PO ONCE PRN; Protocol PRN Reason: Hypoglycemia Protocol Epoetin Paul (Procrit) 10,000 unit IV [facility] Last Admin: 09/29/18 19:19 Dose: 10,000 unit Furosemide (Lasix) 80 mg PO BID [facility] Last Admin: 09/29/18 17:19 Dose: 80 mg Glipizide (Glucotrol) 5 mg PO BID [facility] Last Admin: 09/29/18 17:19 Dose: 5 mg Glucagon (Glucagen Diagnostic Kit) 0 mg IM STAT PRN; Protocol PRN Reason: Hypoglycemia Protocol Hydralazine HCl (Apresoline) 25 mg PO TID [facility] Last Admin: 09/29/18 17:19 Dose: 25 mg Ferric Sodium Gluconate Complex 125 mg/ Sodium Chloride 110 mls @ 110 mls/hr IVPB Q24H [facility] Stop: 10/01/18 10:01 Last Admin: 09/29/18 19:20 Dose: 110 mls/hr Levothyroxine Sodium (Synthroid) 75 mcg PO DAILY@0630 [facility] Last Admin: 09/30/18 06:29 Dose: 75 mcg Metoprolol Succinate (Toprol Xl) 100 mg PO DAILY [facility] Last Admin: 09/29/18 10:55 Dose: Not Given Oxymetazoline HCl (Afrin 0.05%) 0 ml NS Q12H PRN PRN Reason: Nasal congestion Paricalcitol (Zemplar) 2 mcg IV MWF [facility] Last Admin: 09/29/18 19:20 Dose: 2 mcg Rosuvastatin Calcium (Crestor) 10 mg PO HS [facility] Last Admin: 09/29/18 21:40 Dose: 10 mg Vitamin B Complex/Vitamin C (Berocca) 1 tab PO DAILY [facility] Last Admin: 09/29/18 10:53 Dose: Not Given - Labs Labs: 09/29/18 06:05 09/29/18 06:05 PT 11.3 SECONDS (9.7-12.2) 09/29/18 06:05 INR 1.0 09/29/18 06:05 APTT 34 SECONDS (21-34) 09/29/18 06:05 Assessment and Plan - Assessment and Plan (Free Text) Assessment: Physical Exam - Constitutional Appears: No Acute Distress - Head Exam Head Exam: ATRAUMATIC, NORMAL INSPECTION, NORMOCEPHALIC - Eye Exam Eye Exam: EOMI, Normal appearance. absent: Scleral icterus - ENT Exam ENT Exam: Mucous Membranes Moist, Normal Oropharynx - Neck Exam Neck exam: Positive for: Normal Inspection. Negative for: Tenderness, Thyromegaly - Respiratory Exam Respiratory Exam: Clear to Auscultation Bilateral, NORMAL BREATHING PATTERN. absent: Rales, Rhonchi, Wheezes - Cardiovascular Exam Cardiovascular Exam: REGULAR RHYTHM, +S1, +S2. absent: +S4, Systolic Murmur; Right surgical dressing c/d/i - GI/Abdominal Exam GI & Abdominal Exam: Normal Bowel Sounds, Soft. absent: Tenderness - Extremities Exam Extremities exam: Positive for: pedal edema, pedal pulses present. Negative for: calf tenderness - Neurological Exam Neurological exam: Alert, CN II-XII Intact, Oriented x3 - Psychiatric Exam Psychiatric exam: Normal Affect, Normal Mood - Skin Skin Exam: Normal Color, Warm Results - Vital Signs Recent Vital Signs: - EKG Data EKG Interpreted by: Myself, NSR, V pacing - Imaging and Cardiology Chest x-ray Status: Image reviewed by me Assessment & Plan - Assessment and Plan (Free Text) Assessment: Post op Day #1 AVF for surgery performed 09/29/18 Ischemic cardiomyopathy s/p CABG 11/2016 ([employer]) HX of CHB s/p dual chamber PPM 2016 ESRD now on HD HTN, DM, LIPIDS Chronic anemia HTN > mild-mod needs better control > cont toprol XL 100 > Suggest MARBELLA-I or ARB now that he is on HD: monitor K+ CAD/CABG/Ischemic cardiomyopathy > ECHO done today 09/26/18: Images directly seen by me: Moderate LV dysfunction EF ~40%, mild LVH, Grade 2 DD with inc LAP, mild dilated IVC 2.2 with moderate PASP 45-50mmHg, mild MR, TR, sclerotic AV and MAC. > cont HD for ESRD > Cont long acting toprol and statin, ? Consider MARBELLA-I or ARB and aldactone 12.5 daily now that he is on HD. > Add ASA 81 if no acute bleeding given hx of chronic CAD/CABG.
[2018-09-30] MEDS: Vitamin B Complex/Vitamin C Tab PO SCH (09:31)
[2018-09-30] MEDS: Metoprolol Succinate 100 mg XL Tab PO SCH (09:31)
[2018-09-30] MEDS: Ferric Sodium Gluconat Complex 125 MG in Sodium Chloride 0.9% 100 ML IVPB SCH (10:00)
[2018-09-30] MEDS: Oxycodone/Acetaminophen 5/325 mg Tab PO PRN (14:11)
--- NOTE | 2018-09-30 16:03 | CP.PCM.PN ---
Subjective - Date & Time of Evaluation Date of Evaluation: 09/30/18 Time of Evaluation: 10:00 - Subjective Subjective: clinically same Objective - Vital Signs/Intake and Output Vital Signs (last 24 hours): Temp Pulse Resp BP Pulse Ox 98.3 F 70 20 130/75 96 09/30/18 07:00 09/30/18 15:18 09/30/18 07:00 09/30/18 09:34 09/30/18 07:00 Intake and Output: 09/30/18 09/30/18 06:59 18:59 Output Total 300 Balance -300 - Medications Medications: Current Medications Calcium Acetate (Phoslo) 667 mg PO TIDCC [facility] Last Admin: 09/30/18 13:11 Dose: 667 mg Dextrose (Dextrose 50% Inj) 0 ml IV STAT PRN; Protocol PRN Reason: Hypoglycemia Protocol Dextrose (Glutose 15) 0 gm PO ONCE PRN; Protocol PRN Reason: Hypoglycemia Protocol Epoetin Paul (Procrit) 10,000 unit IV MWF [facility] Last Admin: 09/29/18 19:19 Dose: 10,000 unit Furosemide (Lasix) 80 mg PO BID [facility] Last Admin: 09/30/18 09:34 Dose: 80 mg Glipizide (Glucotrol) 5 mg PO BID [facility] Last Admin: 09/30/18 09:31 Dose: 5 mg Glucagon (Glucagen Diagnostic Kit) 0 mg IM STAT PRN; Protocol PRN Reason: Hypoglycemia Protocol Hydralazine HCl (Apresoline) 25 mg PO TID [facility] Last Admin: 09/30/18 14:11 Dose: 25 mg Ferric Sodium Gluconate Complex 125 mg/ Sodium Chloride 110 mls @ 110 mls/hr IVPB Q24H [facility] Stop: 10/01/18 10:01 Last Admin: 09/30/18 10:00 Dose: 110 mls/hr Levothyroxine Sodium (Synthroid) 75 mcg PO DAILY@0630 [facility] Last Admin: 09/30/18 06:29 Dose: 75 mcg Metoprolol Succinate (Toprol Xl) 100 mg PO DAILY [facility] Last Admin: 09/30/18 09:31 Dose: 100 mg Oxycodone/Acetaminophen (Percocet 5/325 Mg Tab) 1 tab PO Q4H PRN PRN Reason: Pain, Mild (1-3) Stop: 10/03/18 13:43 Last Admin: 09/30/18 14:11 Dose: 1 tab Oxymetazoline HCl (Afrin 0.05%) 0 ml NS Q12H PRN PRN Reason: Nasal congestion Paricalcitol (Zemplar) 2 mcg IV MWF [facility] Last Admin: 09/29/18 19:20 Dose: 2 mcg Rosuvastatin Calcium (Crestor) 10 mg PO HS [facility] Last Admin: 09/29/18 21:40 Dose: 10 mg Vitamin B Complex/Vitamin C (Berocca) 1 tab PO DAILY [facility] Last Admin: 09/30/18 09:31 Dose: 1 tab - Labs Labs: 09/29/18 06:05 09/29/18 06:05 PT 11.3 SECONDS (9.7-12.2) 09/29/18 06:05 INR 1.0 09/29/18 06:05 APTT 34 SECONDS (21-34) 09/29/18 06:05
[2018-10-01] MEDS: Oxycodone/Acetaminophen 5/325 mg Tab PO PRN
[2018-10-01] MEDS: Levothyroxine 75 MCG TAB PO SCH (06:37)
[2018-10-01] MEDS ORDERED: Ferric Sodium Gluconat Complex 62.5 mg/5 ml Vial ONE (10:17)
[2018-10-01] MEDS: Epoetin Alfa 10,000 unit/ml Dialysis IV SCH (10:21)
[2018-10-01] MEDS: Paricalcitol 2 mcg/ml Inj IV SCH (10:22)
--- NOTE | 2018-10-01 10:46 | CP.PCM.PN ---
Subjective - Date & Time of Evaluation Date of Evaluation: 10/01/18 Time of Evaluation: 10:28 - Subjective Subjective: Vascular Surgery Progress Note for Dr. Jaramillo 62M seen and evaluated at bedside this morning. Patient had hypoglycemic episodes overnight, diabetes medications held for now. No complaints today. Denies f/c, n/v/d, SOB, CP, headaches, or dizziness. Objective - Vital Signs/Intake and Output Vital Signs (last 24 hours): Temp Pulse Resp BP Pulse Ox 97.4 F L 62 20 122/68 94 L 10/01/18 08:00 10/01/18 08:00 10/01/18 08:00 10/01/18 08:00 10/01/18 08:00 - Medications Medications: Current Medications Calcium Acetate (Phoslo) 667 mg PO TIDCC [facility] Last Admin: 09/30/18 18:00 Dose: 667 mg Dextrose (Dextrose 50% Inj) 0 ml IV STAT PRN; Protocol PRN Reason: Hypoglycemia Protocol Last Admin: 10/01/18 07:14 Dose: 50 ml Dextrose (Glutose 15) 0 gm PO ONCE PRN; Protocol PRN Reason: Hypoglycemia Protocol Last Admin: 10/01/18 06:34 Dose: 15 gm Epoetin Paul (Procrit) 10,000 unit IV MWF [facility] Last Admin: 10/01/18 10:21 Dose: 10,000 unit Furosemide (Lasix) 80 mg PO BID [facility] Last Admin: 09/30/18 18:00 Dose: 80 mg Glipizide (Glucotrol) 5 mg PO BID [facility] Last Admin: 09/30/18 18:01 Dose: 5 mg Glucagon (Glucagen Diagnostic Kit) 0 mg IM STAT PRN; Protocol PRN Reason: Hypoglycemia Protocol Hydralazine HCl (Apresoline) 25 mg PO TID [facility] Last Admin: 09/30/18 18:01 Dose: 25 mg Levothyroxine Sodium (Synthroid) 75 mcg PO DAILY@0630 [facility] Last Admin: 10/01/18 06:37 Dose: 75 mcg Metoprolol Succinate (Toprol Xl) 100 mg PO DAILY [facility] Last Admin: 09/30/18 09:31 Dose: 100 mg Oxycodone/Acetaminophen (Percocet 5/325 Mg Tab) 1 tab PO Q4H PRN PRN Reason: Pain, Mild (1-3) Stop: 10/03/18 13:43 Last Admin: 10/01/18 00:00 Dose: 1 tab Oxymetazoline HCl (Afrin 0.05%) 0 ml NS Q12H PRN PRN Reason: Nasal congestion Paricalcitol (Zemplar) 2 mcg IV MWF [facility] Last Admin: 10/01/18 10:22 Dose: 2 mcg Rosuvastatin Calcium (Crestor) 10 mg PO HS [facility] Last Admin: 09/30/18 21:14 Dose: 10 mg Vitamin B Complex/Vitamin C (Berocca) 1 tab PO DAILY [facility] Last Admin: 09/30/18 09:31 Dose: 1 tab - Labs Labs: 09/29/18 06:05 09/29/18 06:05 PT 11.3 SECONDS (9.7-12.2) 09/29/18 06:05 INR 1.0 09/29/18 06:05 APTT 34 SECONDS (21-34) 09/29/18 06:05 - Constitutional Appears: Well, Non-toxic, No Acute Distress - Head Exam Head Exam: ATRAUMATIC, NORMAL INSPECTION, NORMOCEPHALIC - Eye Exam Eye Exam: EOMI - ENT Exam ENT Exam: Mucous Membranes Dry - Respiratory Exam Respiratory Exam: absent: Respiratory Distress - Extremities Exam Additional comments: Palpable thrill on R AVF - Neurological Exam Neurological Exam: Alert, Awake - Psychiatric Exam Psychiatric exam: Normal Affect, Normal Mood Assessment and Plan - Assessment and Plan (Free Text) Assessment: 62M s/p permacath insertion POD6 s/p right arm AVF POD2 Plan: Continue dialysis Monitor permacath function No further surgical intervention at this present time Please reconsult as needed Follow up with Dr. Jaramillo outpatient Arnel Moise PGY1
[2018-10-01] MEDS: Vitamin B Complex/Vitamin C Tab PO SCH (12:13)
[2018-10-01] MEDS: Ferric Sodium Gluconat Complex 125 MG in Sodium Chloride 0.9% 100 ML IVPB SCH (12:15)
[2018-10-01] MEDS: Metoprolol Succinate 100 mg XL Tab PO SCH (12:25)
--- NOTE | 2018-10-01 13:35 | CP.PCM.PN ---
Subjective - Date & Time of Evaluation Date of Evaluation: 10/01/18 Time of Evaluation: 13:33 - Subjective Subjective: Patient seen and examined at bedside status post AVF Fistula procedure. Patient denies any fevers, chills, Chest Pain, SOB, abdominal pain, or changes in bowel habits. Objective - Vital Signs/Intake and Output Vital Signs (last 24 hours): Temp Pulse Resp BP Pulse Ox 98.2 F 73 17 134/62 99 10/01/18 09:25 10/01/18 09:25 10/01/18 09:25 10/01/18 10:55 10/01/18 09:25 - Medications Medications: Current Medications Calcium Acetate (Phoslo) 667 mg PO TIDCC [facility] Last Admin: 10/01/18 12:25 Dose: Not Given Dextrose (Dextrose 50% Inj) 0 ml IV STAT PRN; Protocol PRN Reason: Hypoglycemia Protocol Last Admin: 10/01/18 07:14 Dose: 50 ml Dextrose (Glutose 15) 0 gm PO ONCE PRN; Protocol PRN Reason: Hypoglycemia Protocol Last Admin: 10/01/18 06:34 Dose: 15 gm Epoetin Paul (Procrit) 10,000 unit IV MWF [facility] Last Admin: 10/01/18 10:21 Dose: 10,000 unit Furosemide (Lasix) 80 mg PO BID [facility] Last Admin: 10/01/18 12:24 Dose: Not Given Glipizide (Glucotrol) 5 mg PO BID [facility] Last Admin: 10/01/18 12:23 Dose: Not Given Glucagon (Glucagen Diagnostic Kit) 0 mg IM STAT PRN; Protocol PRN Reason: Hypoglycemia Protocol Hydralazine HCl (Apresoline) 25 mg PO TID [facility] Last Admin: 10/01/18 12:11 Dose: Not Given Levothyroxine Sodium (Synthroid) 75 mcg PO DAILY@0630 [facility] Last Admin: 10/01/18 06:37 Dose: 75 mcg Metoprolol Succinate (Toprol Xl) 100 mg PO DAILY [facility] Last Admin: 10/01/18 12:25 Dose: Not Given Oxycodone/Acetaminophen (Percocet 5/325 Mg Tab) 1 tab PO Q4H PRN PRN Reason: Pain, Mild (1-3) Stop: 10/03/18 13:43 Last Admin: 10/01/18 00:00 Dose: 1 tab Oxymetazoline HCl (Afrin 0.05%) 0 ml NS Q12H PRN PRN Reason: Nasal congestion Paricalcitol (Zemplar) 2 mcg IV MWF [facility] Last Admin: 10/01/18 10:22 Dose: 2 mcg Rosuvastatin Calcium (Crestor) 10 mg PO HS [facility] Last Admin: 09/30/18 21:14 Dose: 10 mg Vitamin B Complex/Vitamin C (Berocca) 1 tab PO DAILY [facility] Last Admin: 10/01/18 12:13 Dose: Not Given - Labs Labs: 09/29/18 06:05 09/29/18 06:05 PT 11.3 SECONDS (9.7-12.2) 09/29/18 06:05 INR 1.0 09/29/18 06:05 APTT 34 SECONDS (21-34) 09/29/18 06:05 - Constitutional Appears: Well, Non-toxic, No Acute Distress - Head Exam Head Exam: ATRAUMATIC, NORMAL INSPECTION, NORMOCEPHALIC - Eye Exam Eye Exam: EOMI, Normal appearance - ENT Exam ENT Exam: Mucous Membranes Moist - Respiratory Exam Respiratory Exam: Decreased Breath Sounds, Clear to Ausculation Bilateral. absent: Accessory Muscle Use - Cardiovascular Exam Cardiovascular Exam: RRR, +S1, +S2 Additional comments: Decreased Heart Sounds. - GI/Abdominal Exam GI & Abdominal Exam: Soft, Normal Bowel Sounds. absent: Tenderness - Extremities Exam Extremities Exam: Normal Capillary Refill, Pedal Edema (Trace). absent: Tenderness Additional comments: Dressing on Right Wrist clean dry and intact. - Neurological Exam Neurological Exam: Alert, Awake, Oriented x3 - Psychiatric Exam Psychiatric exam: Normal Affect, Normal Mood - Skin Skin Exam: Dry, Intact, Normal Color, Warm Assessment and Plan - Assessment and Plan (Free Text) Plan: CKD, newly placed on dialysis Anemia of Chronic Disease - Surgery consulted, Dr. Jaramillo - permacath and AVF Management: - Continue with Phoslo, Iron infusions - Permacath placed 09/25/18 - POD #1 of AVF in Right snuffbox Epistaxis - Rhino rocket inserted - Will continue to monitor Hypertension - Continue with Hydralazine and Lopressor Diabetes Mellitus - Accuchecks - Continue with Glipizide - Hypoglycemic protocol in place Hyperlipidemia - Continue with statin Diastolic Heart Failure - ECHO (2016): LVEF 60% - ECHO (09/26/18): EF 45-50%, Mild Tricuspid/Mitral Regurgitation, Moderate Pulm HTN. - Continue with lasix 80mg PO BID CAD s/p CABG - Cardiology consulted, Recs Appreciated. 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 Patient to continue all home medications Patient to follow up at outpatient dialysis on Saturday @ 5:20AM. Patient to follow up with PCP within 1 week of discharge All management as per Dr. Avelino Carter, Pascale Beltran DO, PGY2
[2018-10-01 13:44] VITALS: O2SAT 95
[2018-10-01 15:21] VITALS: BP 110/54; PULSE 75; RESP 20; TEMP 98.9
--- NOTE | 2018-10-02 17:14 | PCM.HF ---
Heart Failure Core Measure - Heart Failure Ejection Fraction: 40 % or Greater MARBELLA Inhibitor Prescribed: No Contraindication/Reason for not providing: esrd Beta-Trudi Prescribed: Metoprolol Succinate Angiotensin II Receptor Trudi Prescribed: No Contraindication/Reason for not providing: esrd AnticoagulationTherapy for Atrial Fibrillation/Atrialflutter: No Contraindication/Reason for not providing: no hx of a fib Aldosterone Antagonist Prescribed: No Contraindication/Reason for not providing: esrd Hydralazine Nitrate Prescribed: Yes Implantable Cardioverter Defibrillator Therapy: No Contraindication/Reason for not providing: ef>45 Cardiac Resynchronization Therapy Prescribed: No Contraindication/Reason for not providing: ef>45 - Follow up Will be discharged to: Home Follow Up Date (must be within 7 days from discharge): 10/03/18 Follow Up Time: 08:00
== END 2018-10-01 19:06 | disposition home or self-care (01) | DRG 674 ==
LOC: C.ER 08:02 → C.6T 09:01
PROVIDERS: ADMIT Internal Medicine Nephrology; ATTEND Internal Medicine Nephrology
PROC: 031B0ZF Bypass Right Radial Artery to Lower Arm Vein, Open Approach (ICD-10-PCS; principal; 2018-09-24)
PROC: 0JH63XZ Insertion of Tunneled Vascular Access Device into Chest Subcutaneous Tissue and Fascia, Percutaneous Approach (ICD-10-PCS; 2018-09-24)
PROC: 05HP33Z Insertion of Infusion Device into Right External Jugular Vein, Percutaneous Approach (ICD-10-PCS; 2018-09-24)
DX: E11.22 Type 2 diabetes mellitus with diabetic chronic kidney disease (principal); I13.2 Hypertensive heart and chronic kidney disease with heart failure and with stage 5 chronic kidney disease, or end stage renal disease; N18.6 End stage renal disease; E78.5 Hyperlipidemia, unspecified; E78.00 Pure hypercholesterolemia, unspecified; I50.9 Heart failure, unspecified; D64.9 Anemia, unspecified; E03.9 Hypothyroidism, unspecified; I25.10 Atherosclerotic heart disease of native coronary artery without angina pectoris; I25.5 Ischemic cardiomyopathy; R04.0 Epistaxis; Z95.0 Presence of cardiac pacemaker; Z95.1 Presence of aortocoronary bypass graft; Z99.2 Dependence on renal dialysis

== ENCOUNTER 2018-11-25 10:49 | Outpatient (CLI) | payer BC | END 2018-11-25 10:50 | disposition home or self-care (01) | LOC: C.VASC 10:49 | DX: Z95.1 Presence of aortocoronary bypass graft (principal); Z99.2 Dependence on renal dialysis; N18.6 End stage renal disease ==